=== PATIENT | male | born 1995 | race African-American/Black ===

== ENCOUNTER 2024-07-06 16:04 | Inpatient (IN) | payer SELFPAY ==
--- NOTE | ~2024-07-06 | US_ITS ---
EXAMINATION: US scrotum doppler DATE: 07/06/2024 17:15 INDICATION: Perineal abscess TECHNIQUE: Sonographic evaluation of the scrotum was performed assessing grayscale appearance and col or Doppler flow. Spectral Doppler evaluation was also performed. COMPARISON: None. FINDINGS: RIGHT TESTICLE: The right testicle measures 3.9 x 2.2 x 2.6 cm. Dopplerable flow is present. RIGHT EPIDIDYMIS: The right epididymis is unremarkable. LEFT TESTICLE: The left testicle measures 4.0 x 2.1 x 2.4 cm. Dopplerable flow is demonstrated. LEFT EPIDIDYMIS: The left epididymis is unremarkable. Within the area of clinical concern of the perineum is a complex fluid collection measuring 29 x 24 x 21 mm for which an abscess is suspected. IMPRESSION: Complex peritoneal fluid collection for which an abscess is suspected. Reviewed, dictated and finalized at location A. MANAGER
--- NOTE | ~2024-07-06 | CT_ITS ---
CLINICAL INDICATION: Perineal abscess. COMPARISON: Reference is made to ultrasound examination of the scrotum and perineum performed 2 hours earlier.. TECHNIQUE: Computed tomography (CT) of the pelvis was performed following the demonstration of intrav enous contrast. The dose-length product was 718.07 mGy-cm. FINDINGS/OBSERVATIONS: Redemonstration of a rim-enhancing fluid collection within the perineum measuring 53 x 16 x 26 mm (an terior to posterior x medial to lateral x cranial to caudal dimension). This is located within the ur ogenital triangle of the perineum. Remainder of the examination is otherwise unremarkable. IMPRESSION: Peroneal abscess, as detailed above. Reviewed, dictated and finalized at location A. ID YEAST SUPERVISOR
--- OUTSIDE RECORDS SUMMARY | 2024-07-06 16:06 | XMS_ITS | Clinical Summary ---
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 Gender Identity Not on file Sexual Orientation Not on file Plan of Treatment Health Maintenance Due Date Last Done Comments Hepatitis C Virus (HCV) Screening 1997 Human Papillomavirus (HPV) Immunization (1 - Male 3-dose series) 2012 Influenza Immunization (#1) 2024 08/29/2014, 0 09/29/2011 SARS-COV-2 Immunization ( season) 2024 Respiratory Syncytial Virus (RSV) Immunization (Adult) (1 - 1-dose 75+ series) 2072 Hepatitis B Immunization Completed 998, 1997, 1997 DTaP/Tdap/Td Immunization Discontinued 2008, 07/28/2001, 07/22/1999, Additional history exists TdaP Immunization Completed 07/31/2008 Meningococcal Immunization (ACWY) Completed 08/29/2014, 07/31/2008 Pneumococcal Immunization Combined Aged Out No longer eligible based on patient's age to complete this topic Rotavirus Immunization Aged Out No lo nger eligible based on patient's age to complete this topic
--- OUTSIDE RECORDS SUMMARY | 2024-07-06 16:06 | XMS_ITS | Clinical Summary ---
Author Organization [facility] Address [address] [place] [id number] Care Team Providers Care Commercial Construction Superintendent Name Role Phone No, Physician Primary Care Provider [phone] Allergies No known active allergies Social History Tobacco Use Types Packs/Day Years Used Date Smoking Tobacco: Never Assessed Personal Safety Answer Date Recorded Have you ever been in or are you currently in a harmful physical or emotional relationship or is someone making you feel afraid or unsafe? 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 Gender Identity Not on file Sexual Orientation Not on file Obstetrics History Last Filed Vital Signs Vital Sign Reading Time Taken Comments Blood Pressure 143/88 01/23/2024 12:07 AM CDT Pulse 92 01/23/2024 12:07 AM CDT Temperature 36.8 C (98.2 F) 01/23/2024 12:07 AM CDT Respiratory Rate 18 01/23/2024 12:07 AM CDT Oxygen Saturation 99% 01/23/2024 12:07 AM CDT Inhaled Oxygen Concentration - - Weight 117.9 kg (260 lb) 01/23/2024 12:07 AM CDT Height 188 cm (6' 2 ) 01/23/2024 12:07 AM CDT Body Mass Index 33.38 01/23/2024 12:07 AM CDT Plan of Treatment Not on file Insurance [place] [address] PLAN [facility] ASHAMARIBEL [id number] [facility] Care Teams Commercial Construction Superintendent Relationship Specialty Start Date End Date No, Physician PCP - General 07/01/19
--- OUTSIDE RECORDS SUMMARY | 2024-07-06 16:06 | XMS_ITS | Referral Summary ---
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
--- OUTSIDE RECORDS SUMMARY | 2024-07-06 16:06 | XMS_ITS | Clinical Summary ---
Author Organization [facility] Address [address] [place] [id number] Care Team Providers Care Traditional Maori Health Practitioner Name Role Phone Unavailable Primary Care Provider Unavailabl e Social History Tobacco Use Types Packs/Day Years Used Date Smoking Tobacco: Never Assessed Sex and Gender Information Value Date Recorded Sex Assigned at Not on file Legal Sex Male 8:02 PM CDT Gender Identity Not on file Sexual Orientation Not on file Plan of Treatment Health Maintenance Due Date Last Done Comments Annual Physical 2000 HPV Vaccines (1 - Male 3-dos e series) 2012 Hepatitis C 2015 DTaP, Tdap and Td Vaccines ( 1 - Tdap) 2016 Hepatitis B Vaccines (1 of 3 - 19+ 3-dose series) 2016 COVID-19 Vaccine ( - 2023-2 5 season) 2024 Influenza Adult (#1) 2024 Meningococcal B Vaccine Aged Out No l onger eligible based on patient's age to complete this topic Meningococcal Vaccine Aged Out No rosemarie benjamín eligible based on patient's age to complete this topic Pneumococcal Vaccine: Pediat rics (0 to 5 Years) and At-Risk Patients (6 to 64 Years) Aged Out No longer eligible b ased on patient's age to complete this topic RSV Immunizations Under 20 Months Aged Out No longer eligible based on patient's age to complete this topic
--- NOTE | 2024-07-06 16:38 | ED_ITS ---
HPI - Skin/Abscess/Foreign Bdy General Chief complaint: Skin/Abscess/Foreign Body <Meghann Carlton PA-C - Last Filed: 07/06/24 16:43> Stated complaint: taint cyst <EMMA Arzate Last Filed: 07/06/24 16:43> Time Seen by Provider: 07/06/24 16:38 <Meghann Carlton PA-C - Last Filed: 07/06/24 16:43> Focused HPI: Patient is a 28 y/o male who presents to the ED with c/o cyst on his scrotum. Patient reports he 1st noticed this a few days ago. Has had pain r/t the cyst, but denies significant testicular pain. Denies drainage. Denies fevers. Denies dysuria/difficulty having BM. No hx of DM. States he has had similar sx's in the past, but typically along his inner thighs. GENERAL: Well-appearing, well-nourished, and in no acute distress. HEAD: Normocephalic, atraumatic. CHEST: Clear to auscultation. ?No respiratory distress. HEART: Regular rate and rhythm.? NEURO: ?Alert and oriented x3. Patient screened in triage and initial orders placed.? ?Additional care and disposition to be based upon?diagnostic testing and treatment. <Meghann Carlton PA-C - Last Filed: 07/06/24 16:43> Source: patient <Meghann Carlton PA-C - Last Filed: 07/06/24 16:43> Mode of arrival: ambulatory <Meghann Carlton PA-C - Last Filed: 07/06/24 16:43> Limitations: no limitations <EMMA Arzate Last Filed: 07/06/24 16:43> History of Present Illness HPI narrative: agree with the HPI as described above. <Lonnie Mahaarj MD - Last Filed: 07/06/24 20:55> Related Data Allergies/Adverse reactions: Allergies Allergy/AdvReac Type Severity Reaction Status Date / Time No Known Allergies Allergy Verified 07/06/24 18:13 <PANFILO ArzateC - Last Filed: 07/06/24 16:43> Review of Systems 2 Review of Systems: As described above in HPI <Lonnie Maharaj MD - Last Filed: 07/06/24 20:55> PMFSH Past Medical History Medical History: Medical History No active medical problems <Meghann Carlton PA-C - Last Filed: 07/06/24 16:43> Social History Social History: Social History Substance use: never <Meghann Carlton PA-C - Last Filed: 07/06/24 16:43> Exam 2 Narrative: GENERAL: [Well-appearing, well-nourished, and in no acute distress.] HEAD: [Normocephalic, atraumatic.] EYES: [PERRLA and EOMI.] ENT: Nares clear, no rhinorrhea or epistaxis. Mucous membranes moist. NECK: Supple. CHEST: [Clear to auscultation. No respiratory distress.] HEART: [Regular rate and rhythm]. No murmur heard. [Normal peripheral pulses.] ABDOMEN: [Soft, nondistended], [nontender], [No rigidity or guarding] GENITOURINARY: there appears to be a large area of induration with fluctuance on palpation to the inferior portion of the left-sided scrotum in the perineal area, hard indurated skin without any overlying redness but there is some drainage of mild purulent Material but no bleeding. testes without any palpable tenderness or deformity, no penile erythema or signs of infection. EXTREMITIES: Normal range of motion. [No edema.] SKIN: Warm, dry, no rash. NEURO: [No focal deficits]. Alert and oriented [x3.] PSYCH: [Normal mood and affect.] <Lonnie Maharaj MD - Last Filed: 07/06/24 20:55> Course Vital Signs Vital signs: Vital Signs Temperature 36.7 C 07/06/24 16:39 Pulse Rate 118 H 07/06/24 16:39 Respiratory Rate 16 07/06/24 16:39 Blood Pressure 128/74 07/06/24 16:39 Pulse Oximetry 100 07/06/24 16:39 Oxygen Delivery Room Air 07/06/24 16:39 Temperature 37.1 C 07/06/24 18:14 Pulse Rate 86 07/06/24 18:14 Respiratory Rate 18 07/06/24 18:14 Blood Pressure 135/87 07/06/24 18:14 Pulse Oximetry 99 07/06/24 18:14 Oxygen Delivery Room Air 07/06/24 16:39 <Meghann Carlton PA-C - Last Filed: 07/06/24 16:43> Vital Signs Temperature 36.7 C 07/06/24 16:39 Pulse Rate 118 H 07/06/24 16:39 Respiratory Rate 16 07/06/24 16:39 Blood Pressure 128/74 07/06/24 16:39 Pulse Oximetry 100 07/06/24 16:39 Oxygen Delivery Room Air 07/06/24 16:39 Temperature 37.1 C 07/06/24 18:14 Pulse Rate 86 07/06/24 18:14 Respiratory Rate 18 07/06/24 18:14 Blood Pressure 135/87 07/06/24 18:14 Pulse Oximetry 99 07/06/24 18:14 Oxygen Delivery Room Air 07/06/24 16:39 <Lonnie Maharaj MD - Last Filed: 07/06/24 20:55> MDM - Skin/Abscess/Foreign Bdy MDM Narrative Medical decision making narrative: MSE by SULAIMAN in triage. <Meghann Carlton PA-C - Last Filed: 07/06/24 16:43> MSE by SULAIMAN in triage. 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 No formal diagnosis of any kind of inflammatory process such as HS however likely in his history of recurrent abscess formation. Presents today with a perineal/ scrotal abscess: Clinical examination. He is slightly tachycardic with a pulse 118 but afebrile, normal vital signs otherwise. Genital urinary examination conducted at bedside does show an hard induration area with some mild fluctuance and minimal purulent expression at the apex without any overlying skin erythema. Testicles without any tenderness or swelling, no penile lesions. No tender lymphadenopathy in the region. His previous incision and drainage sites in his leg and buttock appear clean and without active signs of infection or purulence. ultrasound of the scrotum was conducted which shows a perineal abscess. Laboratory studies were obtained including lactic acid, CBC, CMP. He was given morphine and fluid bolus. He was started on Zosyn for antibiosis. A CT of the pelvis with contrast was obtained to make sure there is no extension into the soft tissues or other process that needs attention. Laboratory studies showed no leukocytosis or anemia. Normal platelet count. Slightly hypokalemic otherwise unremarkable electrolytes, normal LFTs, negative lactic acid. the CT scan shows a 53 x 16 x 26 mm collection of rim enhancing fluid in the perineal area within the urogenital triangle. I discussed the case with the on-call urologist Dr. Santacruz. We went over the imaging together as well as clinical exam. Patient would benefit from an incision and drainage in the operating room given the size of the abscess formation. Recommendations to admit to the hospitalist team with NPO at midnight, pain control antibiotics. Will be undergoing incision and drainage in the operating room tomorrow morning. Discussed the case with the hospitalist Dr. Lester who agreed to accept the patient for admission to a medical-surgical bed at this time. Patient was made aware of the plan and agreeable to admission and intervention. <Lonnie Maharaj MD - Last Filed: 07/06/24 20:55> Medical Records Attestation: I reviewed the patient's medical records. <Lonnie Maharaj MD - Last Filed: 07/06/24 20:55> Lab Data Attestation: I reviewed the patient's lab results. <Lonnie Maharaj MD - Last Filed: 07/06/24 20:55> Result diagrams: 07/06/24 18:43 07/06/24 18:43 <Meghann Carlton PA-C - Last Filed: 07/06/24 16:43> Labs: Lab Results 07/06/24 Range/Units 18:43 WBC 9.8 (4.5-10.0) K/mm3 RBC 5.37 (4.6-6.20) M/mm3 Hgb 17.7 (14.0-18.0) g/dL Hct 48.6 (42.0-52.0) % MCV 90.5 (80-100) fl MCH 33.0 (26-34) pg MCHC 36.4 H (32-36) g/dl RDW 13.0 (11.5-14.5) % Plt Count 206 (150-375) k/mm3 MPV 10.8 H (7.4-10.4) fl Immature Gran % (Auto) 0.3 (0-0.5) % Neut % (Auto) 72.2 (45.5-73.1) % Lymph % (Auto) 19.7 (18.3-44.2) % [place] % (Auto) 7.3 (2.6-8.5) % Eos % (Auto) 0.3 (0-4.4) % Baso % (Auto) 0.2 (0.2-1.2) % Lymph # (Auto) 1.93 (0.9-3.2) K/mm3 [place] # (Auto) 0.7 H (0.1-0.6) K/mm3 Eos # (Auto) 0.0 (0-0.3) K/mm3 Baso # (Auto) 0.0 (0.0-0.1) K/mm3 Abs Immat Gran (auto) 0.03 (0.00-0.031) K/mm3 Absolute Neuts (auto) 7.1 H (1.3-6.7) K/mm3 Absolute Nucleated RBC 0.000 (0.0-0.012) K/mm3 Nucleated RBC % 0.0 (0.0-0.2) % Sodium 140 (137-145) mmol/L Potassium 3.2 L (3.4-5.0) mmol/L Chloride 105 (98-107) mmol/L Carbon Dioxide 23 (22-30) mmol/L Anion Gap 12 (4-12) mmol/L BUN 7 L (9-20) mg/dL Creatinine 0.70 (0.7-1.3) mg/dL Estim Creat Clear Calc 185 ml/min Estimated GFR > 60 (59 - ) Glucose 96 (65-110) mg/dL Lactic Acid 1.4 (0.7-2.0) mmol/L Calcium 9.1 (8.4-10.2) mg/dL Total Bilirubin 1.6 H (0.2-1.3) mg/dL AST 26 (17-59) U/L ALT 33 (6-50) U/L Alkaline Phosphatase 71 (38-126) U/L Total Protein 7.0 (6.3-8.2) g/dL Albumin 4.2 (3.5-5.1) g/dL <Meghann Carlton PA-C - Last Filed: 07/06/24 16:43> Lab Results 07/06/24 Range/Units 18:43 WBC 9.8 (4.5-10.0) K/mm3 RBC 5.37 (4.6-6.20) M/mm3 Hgb 17.7 (14.0-18.0) g/dL Hct 48.6 (42.0-52.0) % MCV 90.5 (80-100) fl MCH 33.0 (26-34) pg MCHC 36.4 H (32-36) g/dl RDW 13.0 (11.5-14.5) % Plt Count 206 (150-375) k/mm3 MPV 10.8 H (7.4-10.4) fl Immature Gran % (Auto) 0.3 (0-0.5) % Neut % (Auto) 72.2 (45.5-73.1) % Lymph % (Auto) 19.7 (18.3-44.2) % [place] % (Auto) 7.3 (2.6-8.5) % Eos % (Auto) 0.3 (0-4.4) % Baso % (Auto) 0.2 (0.2-1.2) % Lymph # (Auto) 1.93 (0.9-3.2) K/mm3 [place] # (Auto) 0.7 H (0.1-0.6) K/mm3 Eos # (Auto) 0.0 (0-0.3) K/mm3 Baso # (Auto) 0.0 (0.0-0.1) K/mm3 Abs Immat Gran (auto) 0.03 (0.00-0.031) K/mm3 Absolute Neuts (auto) 7.1 H (1.3-6.7) K/mm3 Absolute Nucleated RBC 0.000 (0.0-0.012) K/mm3 Nucleated RBC % 0.0 (0.0-0.2) % Sodium 140 (137-145) mmol/L Potassium 3.2 L (3.4-5.0) mmol/L Chloride 105 (98-107) mmol/L Carbon Dioxide 23 (22-30) mmol/L Anion Gap 12 (4-12) mmol/L BUN 7 L (9-20) mg/dL Creatinine 0.70 (0.7-1.3) mg/dL Estim Creat Clear Calc 185 ml/min Estimated GFR > 60 (59 - ) Glucose 96 (65-110) mg/dL Lactic Acid 1.4 (0.7-2.0) mmol/L Calcium 9.1 (8.4-10.2) mg/dL Total Bilirubin 1.6 H (0.2-1.3) mg/dL AST 26 (17-59) U/L ALT 33 (6-50) U/L Alkaline Phosphatase 71 (38-126) U/L Total Protein 7.0 (6.3-8.2) g/dL Albumin 4.2 (3.5-5.1) g/dL <Lonnie Maharaj MD - Last Filed: 07/06/24 20:55> Imaging Data Attestation: I personally reviewed and interpreted this imaging study as follows: < Lonnie Maharaj MD - Last Filed: 07/06/24 20:55> My impression: Impressions Scrotum Ultrasound 07/06/24 17:32 IMPRESSION: Complex peritoneal fluid collection for which an abscess is suspected. Pelvis CT 07/06/24 19:48 IMPRESSION: Peroneal abscess, as detailed above. <Lonnie Maharaj MD - Last Filed: 07/06/24 20:55> Discharge Plan Discharge Clinical Impression: Perineal abscess <Meghann Carlton PA-C - Last Filed: 07/06/24 16:43> Patient Disposition: Still a Patient <Meghann Carlton PA-C - Last Filed: 07/06/24 16:43> Condition: Stable <Meghann Carlton PA-C - Last Filed: 07/06/24 16:43> Patient Language: Bengali <Meghann Carlton PA-C - Last Filed: 07/06/24 16:43> Follow-up/Referrals: PHYSICIAN,VALVE TESTER [Primary Care Provider] - <Meghann Carlton PA-C - Last Filed: 07/06/24 16:43> Time of Disposition: 20:54 <Meghann Carlton PA-C - Last Filed: 07/06/24 16:43> 20:54 <Lonnie Maharaj MD - Last Filed: 07/06/24 20:55>
[2024-07-06 16:39] VITALS: BP 128/74; PULSE 118; RESP 16; TEMP 36.7; O2SAT 100
[2024-07-06 18:14] VITALS: BP 135/87; PULSE 86; RESP 18; TEMP 37.1; O2SAT 99
--- OUTSIDE RECORDS SUMMARY | 2024-07-06 18:20 | XMS_ITS | Referral Summary ---
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
--- OUTSIDE RECORDS SUMMARY | 2024-07-06 18:20 | XMS_ITS | Clinical Summary ---
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
--- OUTSIDE RECORDS SUMMARY | 2024-07-06 18:20 | XMS_ITS | Clinical Summary ---
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
--- OUTSIDE RECORDS SUMMARY | 2024-07-06 18:20 | XMS_ITS | Clinical Summary ---
Author Organization [facility] Address [address] [place] [id number] Care Team Providers Care Authorization Manager Name Role Phone Unavailable Primary Care Provider [...]
[2024-07-06] MEDS: LACTATED RINGERS 1,000 ML 999 ML IV CONT (18:39)
[2024-07-06] MEDS: MORPHINE SULFATE (*CRX) 4 MG/ML INJ IV PUSH (18:41)
[2024-07-06 18:48] LABS: Basophils Percent Auto 0.2 % (0.2-1.2); Eosinophils Percent Auto 0.3 % (0-4.4); Hematocrit 48.6 % (42.0-52.0); Hemoglobin 17.7 g/dL (14.0-18.0); Immature Granulocyte Absolute 0.03 K/mm3 (0.00-0.031); Immature Granulocyte Percent A 0.3 % (0-0.5); Lymphocytes Absolute Auto 1.93 K/mm3 (0.9-3.2); Lymphocytes Percent Auto 19.7 % (18.3-44.2); Mean Corpuscular HGB Conc 36.4 g/dl (32-36); Mean Corpuscular Volume 90.5 fl (80-100); Mean Platelet Volume 10.8 fl (7.4-10.4); Monocytes Absolute Auto 0.7 K/mm3 (0.1-0.6); Monocytes Percent Auto 7.3 % (2.6-8.5); Neutrophils Absolute Auto 7.1 K/mm3 (1.3-6.7); Neutrophils Percent Auto 72.2 % (45.5-73.1); Platelet Count Result 206 k/mm3 (150-375); Red Blood Count 5.37 M/mm3 (4.6-6.20); White Blood Count 9.8 K/mm3 (4.5-10.0)
[2024-07-06] MEDS: PIPERACILLIN/TAZ 4.5G/NS 100ML 4.5 GM/100 ML BAG IVPB (18:52)
[2024-07-06 18:57] LABS: Lactic Acid Reflex 1.4 mmol/L (0.7-2.0)
[2024-07-06 18:58] LABS: Alanine Aminotransferase 33 U/L (6-50); Albumin Level 4.2 g/dL (3.5-5.1); Alkaline Phosphatase 71 U/L (38-126); Anion Gap 12 mmol/L (4-12); Aspartate Amino Transferase 26 U/L (17-59); Bilirubin,Total 1.6 mg/dL (0.2-1.3); Blood Urea Nitrogen 7 mg/dL (9-20); Calcium 9.1 mg/dL (8.4-10.2); Carbon Dioxide 23 mmol/L (22-30); Chloride 105 mmol/L (98-107); Estimated CRCL calculation 185 ml/min; Estimated Glomerular Filt Rate > 60; Glucose 96 mg/dL (65-110); Potassium 3.2 mmol/L (3.4-5.0); Sodium 140 mmol/L (137-145)
[2024-07-06 23:19] VITALS: BMI 31.5
[2024-07-06 23:42] VITALS: BMI 33.2
--- NOTE | 2024-07-06 23:43 | ADMGEN ---
This patient, Bob Kuhn, was admitted to [facility] Surg Room 323-02. Patient/family oriented to hospital policies and general routines including ID bracelet, bed and alarms, visiting hours, pain management, procedures, bathroom and other care routines, personal items, smoking policy, room service/diet, and visiting hours. Information on how to activate the Rapid Response Team has been discussed. Patient/Family are encouraged to report perceived risks to care and to ask questions if they do not understand what they are told or what they should do.
[2024-07-06 23:59] VITALS: PULSE 86; RESP 18; O2SAT 99
[2024-07-07] VITALS (17 sets, daily range): BP systolic 94–146; BP diastolic 60–86; PULSE 52–85; RESP 10–20; TEMP 36–36.9; O2SAT 97–100
--- NOTE | 2024-07-07 01:50 | PM.IMHP ---
H&P: HPI History of Present Illness Date/Time: 07/07/24 01:50 Chief Complaint: Scrotal abscess Narrative: 28-year-old male with no prior medical history except for intermittent and spontaneous skin lesion/cyst on his thighs and gentle area. He presents to [place] ER with a complaint of pain since the day prior to admission which has become increasingly painful and large. Patient denies any drainage. He denies any trouble urinating. Recently at [facility] he had a similar abscess drained. ER physician noted minimal purulent drainage. Ultrasound of scrotum and pelvis CT both demonstrate a perennial abscess measuring 53 x 16 x 26 mm. ER physician spoke with Dr. Santacruz who anticipates incision and drainage in the OR on 07/07/2024. Zosyn administered. Review of Systems Review of Systems: All systems reviewed & are unremarkable except as noted in HPI and below (Subjective) PMFSH Past Medical History Medical History No active medical problems Social History Social History Years smoked: 11 Smoking status: Current every day smoker Tobacco type: cigars Alcohol intake: current Drinks per week: 4 Substance use: never Do You Feel Safe in your Home?: Yes Lack of Transportation: No Lack of Food: Never True Current Housing: I Have Housing Concerned About Future Housing: No Difficulty Paying Gas/Electric Bills: No Difficulty Paying for Meds: No Currently Unemployed: YES Education: High School Diploma/GED Difficulty w/ Childcare or Family Care: No Spiritual care concerns: No Meds Home Medications and Allergies Home Medications ?Medication ?Instructions ?Recorded ?Confirmed ?Type No Home Medications 07/06/24 07/06/24 History Allergies Allergy/AdvReac Type Severity Reaction Status Date / Time No Known Allergies Allergy Verified 07/06/24 18:13 Vital Signs Vital Signs - 24 hr 07/06/24 16:39 07/06/24 18:14 07/06/24 23:59 Temperature 98.1 F 98.8 F Pulse Rate 118 H 86 86 Respiratory Rate 16 18 18 Blood Pressure 128/74 135/87 Pulse Oximetry 100 99 99 Oxygen Delivery Room Air Room Air 07/07/24 00:45 Temperature 97.6 F Pulse Rate 85 Respiratory Rate 20 Blood Pressure 146/61 H Pulse Oximetry 100 Oxygen Delivery Exam Const: General: comfortable and no acute distress Eyes: Pupils: Equal, round and reactive pupils present Neck: Neck: supple Resp: Effort & Inspection: normal respiratory effort Auscultation: clear to auscultation bilaterally Cardio: Rate: regular rate Rhythm: regular rhythm GI: GI Palp: Yes Soft to palpation and No Tenderness to palpation present (GI) : Other: Perineal induration, fluctuance, erythematous and edematous. Self expressing purulent drainage. Exquisitely tender palpation H&P: Results Labs Labs: Short CBC 07/06/24 Range/Units 18:43 WBC 9.8 (4.5-10.0) K/mm3 Hgb 17.7 (14.0-18.0) g/dL Hct 48.6 (42.0-52.0) % Plt Count 206 (150-375) k/mm3 BMP 07/06/24 18:43 Sodium 140 Potassium 3.2 L Chloride 105 Carbon Dioxide 23 BUN 7 L Creatinine 0.70 Glucose 96 Calcium 9.1 Liver Function 07/06/24 Range/Units 18:43 Total Bilirubin 1.6 H (0.2-1.3) mg/dL AST 26 (17-59) U/L ALT 33 (6-50) U/L Alkaline Phosphatase 71 (38-126) U/L Albumin 4.2 (3.5-5.1) g/dL Assessment and Plan Assessment and plan (1) Perineal abscess: Code(s): L02.215 - Cutaneous abscess of perineum Status: Acute Plan P.r.n. pain control. Continue Zosyn. NPO midnight. Urology to see in consultation. Currently there is some self expression of purulent drainage. Culture ordered. Hypokalemia. Replace. Check magnesium. SCDs. Patient wishes to be full code. Hospitalist [facility] Advance Care Plan I have confirmed that the patient's Advanced Care Plan is present, code status is documented, or surrogate decision maker is listed in patient medical record.: Yes Medication Reconciliation I have utilized all available resources to obtain, update and review the patients current medications (includes all prescriptions, OTC, herbals, cannabis, and nutritional supplements).: Yes
[2024-07-07] MEDS: POTASSIUM CHLORIDE 20 MEQ ER TABLET PO (02:10)
[2024-07-07] MEDS: PIPERACILLN/TAZ 3.375GM/NS50ML 3.375 GM/50 ML BAG IVPB ×4 (02:19→19:50)
--- NOTE | 2024-07-07 07:19 | WPDANESEPPF ---
Anes - Initial Pre Proc Eval Procedure: Operation Date: 07/07/24 10:30 Proposed Procedures p Incision And Drainage Groin Abscess - Neal Perry MD Date/Time: 07/07/24 07:19 Surgeon: [place] Pre Op Diagnosis: Perineal/scrotal abscess Patient Data Age: 28 Gender: M Height: 1.83 m Weight: 111 kg Last Vital Signs Temp 36.4 C 07/07/24 00:45 Pulse 85 07/07/24 00:45 Resp 20 07/07/24 00:45 BP 146/61 H 07/07/24 00:45 Pulse Ox 100 07/07/24 00:45 O2 Del Method Room Air 07/06/24 23:59 Allergies Allergy/AdvReac Type Severity Reaction Status Date / Time No Known Allergies Allergy Verified 07/06/24 18:13 Home Medications ?Medication ?Instructions ?Recorded ?Confirmed ?Type No Home Medications 07/06/24 07/06/24 History Laboratory Tests 07/06/24 18:43 WBC 9.8 K/mm3 (4.5-10.0) RBC 5.37 M/mm3 (4.6-6.20) Hgb 17.7 g/dL (14.0-18.0) Hct 48.6 % (42.0-52.0) MCV 90.5 fl (80-100) MCH 33.0 pg (26-34) MCHC 36.4 H g/dl (32-36) RDW 13.0 % (11.5-14.5) Plt Count 206 k/mm3 (150-375) MPV 10.8 H fl (7.4-10.4) Immature Gran % (Auto) 0.3 % (0-0.5) Neut % (Auto) 72.2 % (45.5-73.1) Lymph % (Auto) 19.7 % (18.3-44.2) [place] % (Auto) 7.3 % (2.6-8.5) Eos % (Auto) 0.3 % (0-4.4) Baso % (Auto) 0.2 % (0.2-1.2) Lymph # (Auto) 1.93 K/mm3 (0.9-3.2) [place] # (Auto) 0.7 H K/mm3 (0.1-0.6) Eos # (Auto) 0.0 K/mm3 (0-0.3) Baso # (Auto) 0.0 K/mm3 (0.0-0.1) Abs Immat Gran (auto) 0.03 K/mm3 (0.00-0.031) Absolute Neuts (auto) 7.1 H K/mm3 (1.3-6.7) Absolute Nucleated RBC 0.000 K/mm3 (0.0-0.012) Nucleated RBC % 0.0 % (0.0-0.2) Sodium 140 mmol/L (137-145) Potassium 3.2 L mmol/L (3.4-5.0) Chloride 105 mmol/L (98-107) Carbon Dioxide 23 mmol/L (22-30) Anion Gap 12 mmol/L (4-12) BUN 7 L mg/dL (9-20) Creatinine 0.70 mg/dL (0.7-1.3) Estim Creat Clear Calc 185 ml/min Estimated GFR > 60 (59 - ) Glucose 96 mg/dL (65-110) Lactic Acid 1.4 mmol/L (0.7-2.0) Calcium 9.1 mg/dL (8.4-10.2) Total Bilirubin 1.6 H mg/dL (0.2-1.3) AST 26 U/L (17-59) ALT 33 U/L (6-50) Alkaline Phosphatase 71 U/L (38-126) Total Protein 7.0 g/dL (6.3-8.2) Albumin 4.2 g/dL (3.5-5.1) Patient hx anesthesia problems: none Family hx anesthesia problems: none Results Review: All pre-operative results and documents have been reviewed as part of the pre-operative evaluation. [facility] Past Medical History Medical History No active medical problems Social History Social History Years smoked: 11 Smoking status: Current every day smoker Tobacco type: cigars Alcohol intake: current Drinks per week: 4 Substance use: never Do You Feel Safe in your Home?: Yes Lack of Transportation: No Lack of Food: Never True Current Housing: I Have Housing Concerned About Future Housing: No Difficulty Paying Gas/Electric Bills: No Difficulty Paying for Meds: No Currently Unemployed: YES Education: High School Diploma/GED Difficulty w/ Childcare or Family Care: No Spiritual care concerns: No Anes - Eval Final PreProcedure Day of Procedure 07/07/24 07:19 Patient weight: obese Heart: regular rate and rhythm Lungs: clear to auscultation Airway: Mallampati scale class II Neurological: alert and oriented Last oral intake: >/= 8 hours ASA classification: II Emergent: no Anesthetic plan: proceed Anesthesia type and monitoring: general LMA and standard monitoring Results Review: All pre-operative results and documents have been reviewed as part of the pre-operative evaluation. Informed Consent: The patient's anesthetic plan and its attendant risks and benefits were discussed with the patient/family/POA. Questions were solicited and answers provided to the satisfaction of the patient/family/POA.
[2024-07-07 07:46] LABS: Basophils Percent Auto 0.4 % (0.2-1.2); Eosinophils Absolute Auto 0.1 K/mm3 (0-0.3); Eosinophils Percent Auto 1.2 % (0-4.4); Hematocrit 44.4 % (42.0-52.0); Hemoglobin 15.8 g/dL (14.0-18.0); Immature Granulocyte Absolute 0.03 K/mm3 (0.00-0.031); Immature Granulocyte Percent A 0.4 % (0-0.5); Lymphocytes Percent Auto 23.4 % (18.3-44.2); Mean Corpuscular HGB Conc 35.6 g/dl (32-36); Mean Corpuscular Hemoglobin 32.5 pg (26-34); Mean Corpuscular Volume 91.4 fl (80-100); Mean Platelet Volume 11.3 fl (7.4-10.4); Monocytes Absolute Auto 0.8 K/mm3 (0.1-0.6); Monocytes Percent Auto 8.8 % (2.6-8.5); Neutrophils Absolute Auto 5.7 K/mm3 (1.3-6.7); Neutrophils Percent Auto 65.8 % (45.5-73.1); Platelet Count Result 195 k/mm3 (150-375); Red Blood Count 4.86 M/mm3 (4.6-6.20); Red Cell Distribution Width 12.7 % (11.5-14.5); White Blood Count 8.6 K/mm3 (4.5-10.0)
[2024-07-07 08:09] LABS: Anion Gap 8 mmol/L (4-12); Blood Urea Nitrogen 8 mg/dL (9-20); Calcium 8.6 mg/dL (8.4-10.2); Carbon Dioxide 25 mmol/L (22-30); Chloride 106 mmol/L (98-107); Estimated CRCL calculation 159 ml/min; Estimated Glomerular Filt Rate > 60; Glucose 81 mg/dL (65-110); Magnesium 2.2 mg/dL (1.6-2.3); Potassium 3.5 mmol/L (3.4-5.0); Sodium 139 mmol/L (137-145)
--- NOTE | 2024-07-07 08:15 | WPDURCON ---
Assessment and Plan Assessment and plan (1) Scrotal abscess: Code(s): N49.2 - Inflammatory disorders of scrotum Status: Acute Assessment and Plan: Plan for incision and drainage of a general abscess. Discussed the fact that I will not close the wound. He it we packed open and need frequent dressing changes. I do not think he would tolerate this without anesthesia. Discussed risks and benefits. He agrees to proceed Urology Consult Note HPI Date Seen: 07/07/24 Requesting Physician: Vivian Lester MD Primary Care Provider: [employer]MENT TENDER PHYSICIAN Consult Narrative Narrative: Bob Kuhn is a 28 year old male who noted groin pain and swelling over the last 4-5 days. He denied fevers or chills. He denied symptoms of urinary tract infection. He has history of a recent thigh abscess which drained spontaneous. He presented himself to the emergency room. He underwent a ultrasound and CT scan. A groin abscess is noted on the left measuring up to 5 cm. It is exquisitely tender. I do not think he would tolerate incision and drainage in the room. We will plan on I and D under anesthesia Review of Systems Review of Systems: All systems reviewed & are unremarkable except as noted in HPI and below PMFSH Past Medical History Medical History No active medical problems Social History Social History Years smoked: 11 Smoking status: Current every day smoker Tobacco type: cigars Alcohol intake: current Drinks per week: 4 Substance use: never Do You Feel Safe in your Home?: Yes Lack of Transportation: No Lack of Food: Never True Current Housing: I Have Housing Concerned About Future Housing: No Difficulty Paying Gas/Electric Bills: No Difficulty Paying for Meds: No Currently Unemployed: YES Education: High School Diploma/GED Difficulty w/ Childcare or Family Care: No Spiritual care concerns: No Meds Home Medications and Allergies Home Medications ?Medication ?Instructions ?Recorded ?Confirmed ?Type No Home Medications 07/06/24 07/06/24 History Allergies Allergy/AdvReac Type Severity Reaction Status Date / Time No Known Allergies Allergy Verified 07/06/24 18:13 Vital Signs Vital Signs - 24 hr 07/06/24 16:39 07/06/24 18:14 07/06/24 23:59 Temperature 98.1 F 98.8 F Pulse Rate 118 H 86 86 Respiratory Rate 16 18 18 Blood Pressure 128/74 135/87 Pulse Oximetry 100 99 99 Oxygen Delivery Room Air Room Air 07/07/24 00:44 07/07/24 00:45 07/07/24 07:19 Temperature 97.6 F 97.6 F 98.4 F Pulse Rate 85 85 73 Respiratory Rate 20 20 20 Blood Pressure 146/61 H 146/61 H 126/82 Pulse Oximetry 100 100 100 Oxygen Delivery Exam Const: General: cooperative and healthy appearing; No diaphoretic or ill appearing Nutritional Appearance: average body habitus Limitations: no limitations HENMT: Head: normal to inspection Eyes: General: appearance normal, both eyes and all related structures Neck: Neck: normal visual inspection and full ROM Resp: Effort & Inspection: normal respiratory effort, able to speak in complete sentences and not labored GI: Inspection: normal to inspection : Other: Normal phallus. Area of abscess on the inferior left scrotum. This not tolerate exam very well. Scant drainage minimal overlying skin erythema. No overt signs of necrosis Back/Spine/Pelvis: Back: no CVA tenderness Skin: General skin exam: normal color and no rashes or lesions noted Neuro: General: patient oriented x3 Extrem: General: normal to inspection and full ROM Psych: Appearance: grossly normal Results Labs 07/07/24 07:03 07/07/24 07:03 Labs: Short CBC 07/06/24 07/07/24 Range/Units 18:43 07:03 WBC 9.8 8.6 (4.5-10.0) K/mm3 Hgb 17.7 15.8 (14.0-18.0) g/dL Hct 48.6 44.4 (42.0-52.0) % Plt Count 206 195 (150-375) k/mm3 BMP 07/06/24 07/07/24 18:43 07:03 Sodium 140 139 Potassium 3.2 L 3.5 Chloride 105 106 Carbon Dioxide 23 25 BUN 7 L 8 L Creatinine 0.70 0.79 Glucose 96 81 Calcium 9.1 8.6 Liver Function 07/06/24 Range/Units 18:43 Total Bilirubin 1.6 H (0.2-1.3) mg/dL AST 26 (17-59) U/L ALT 33 (6-50) U/L Alkaline Phosphatase 71 (38-126) U/L Albumin 4.2 (3.5-5.1) g/dL Imaging My impression: I reviewed his CT scan myself. I have also reviewed the ultrasound report
[2024-07-07] MEDS: LACTATED RINGERS 1,000 ML 30 ML IV CONT (09:55)
--- NOTE | 2024-07-07 10:40 | WPDHPUPDATE1 ---
History and Physical Update Update Date/Time: 07/07/24 10:40 History and Physical has been reviewed, including an updated exam of the patient. There are NO changes in the patient's condition. Risks, benefits, and alternatives have been discussed and questions answered. Patient agrees to proceed with procedure.
[2024-07-07] MEDS: BUPIVACAINE/EPINEPHRINE 0.5% 10 ML VIAL INFILTRATE (11:03)
--- NOTE | 2024-07-07 11:07 | W.PM.PROC2 ---
Procedure Note - Detailed Date of Procedure 07/07/24 Pre-op Diagnosis Perineal/scrotal abscess Post-op Diagnosis Same Procedure Performed incision and drainage of scrotal abscess/ groin abscess Surgeon Neal Perry MD Anesthesia General Indications he has a scrotal and groin abscess. He would not tolerate a bedside incision and drainage we will do under anesthesia and packed the wound. he understood risks, benefits and alternatives. He understands that will need to heal by secondary intention Findings uncomplicated groin abscess drainage Description of Procedure he was correctly identified. Informed consent obtained. From the operating room. He was he was given general anesthesia. He was prepped and draped in the frogleg position. A time-out performed. Examination revealed a scrotal and groin abscess in the left inferior groin scrotal region. It was away from the urethra. Was away from the anus. It was away from the testicles. I localized the area with local mixed with epinephrine. I made incision over this abscess. Copious purulent material was drained. This was sent for culture. I opened the entire scrotal abscess up to aid in wound packing. I irrigated out the wound copiously. I packed it with iodoform gauze. There was no evidence of injury to the urethra, testicles, surrounding organs. Sterile dressing was applied. I will get a wound care consult to help manage the wound. He likely be able to care for this on his own upon discharge. He was awakened transferred to the PACU in stable condition. Estimated Blood Loss 2 Drains No Packing Yes Pathology None sent Complications No immediate complications Condition Stable Disposition PACU
[2024-07-07] MEDS: fentaNYL CITRATE INJ (*CRX) 100 MCG/2 ML VIAL 25 MCG IV PUSH ×2 (11:32→11:35)
--- NOTE | 2024-07-07 16:06 | P.PNIM_ITS ---
Progress Note: A&P Assessment and Plan (1) Perineal abscess: Code(s): L02.215 - Cutaneous abscess of perineum Status: Acute Assessment and Plan: * scrotum ultrasound shown complex peritoneal fluid collection measuring 29 x 24 x 21 mm, suspicious for an abscess * pelvis CT shown perineal abscess measuring 53 x 16 x 26 mm * general surgery consulted and took patient for I&D today * continue pain control * continue Zosyn * SCDs for DVT prophylaxis * wound nurse consulted and placed recommendations * blood culture showing no growth to date on preliminary read * Will likely need help at home with dressing changes Time Spent With Patient Time with patient: 25 - 35 minutes Subjective Date/time seen: 07/07/24 16:06 Interval history: Interval history: This is a 28 year old male who presented to the hospital with scrotal abscess. workup in the hospital included a scrotum ultrasound which showed complex peritoneal fluid collection for which an abscess is suspected, measuring 29 x 24 x [address] Pelvic CT showed peroneal abscess measuring 53 x 16 x 26 mm. Initial labs showed a normal white blood cell count of 9.8, potassium 3.2, total bili 1.6. Abscess culture pending. Patient was given LR, Zosyn, pain medication, potassium while in the ED. General surgery was consulted and took patient today for and I and D of the scrotal /groin abscess. Subjective: Denies any new complaints. He states that his pain is controlled right now. Labs reviewed. Review of Systems Review of Systems: All systems reviewed & are unremarkable except as noted in HPI and below (Subjective) Exam Narrative: General: In no acute distress, well nourished Head: atraumatic, no encephalopathy Eyes: PERRLA, sclera clear ENT: moist mucous membranes, nasal passages clear Neck: supple, no JVD, no adenopathy, trachea midline Cardiac: Normal S1 and S2. RRR, No murmur, gallops or friction rubs, peripheral pulses intact. Respiratory: Lungs clear to auscultation, no adventitious lung sounds, currently on room air Gastrointestinal: soft, non-distended, non-tender, normoactive bowel sounds. : voiding without difficulty. Extremities: moves all extremities well, no edema, good ROM, strength 5/5 Skin: perineal OR dressing in place with Iodoform gauze packing. Neuro: Alert and oriented x4, cranial nerves intact, no neuro deficits. Psych: normal mood, normal affect, interactive Objective Data Vital Signs Vital Signs: Vital Signs - 24 hr 07/06/24 16:39 07/06/24 18:14 07/06/24 23:59 Temperature 98.1 F 98.8 F Pulse Rate 118 H 86 86 Respiratory Rate 16 18 18 Blood Pressure 128/74 135/87 Pulse Oximetry 100 99 99 Oxygen Delivery Room Air Room Air Oxygen Flow Rate 07/07/24 00:44 07/07/24 00:45 07/07/24 07:19 Temperature 97.6 F 97.6 F 98.4 F Pulse Rate 85 85 73 Respiratory Rate 20 20 20 Blood Pressure 146/61 H 146/61 H 126/82 Pulse Oximetry 100 100 100 Oxygen Delivery Oxygen Flow Rate 07/07/24 08:38 07/07/24 09:56 07/07/24 11:08 Temperature 98.5 F 97.2 F L Pulse Rate 60 75 Respiratory Rate 16 14 Blood Pressure 134/73 108/60 Pulse Oximetry 100 100 100 Oxygen Delivery Room Air Room Air Simple Face Mask Oxygen Flow Rate 8 07/07/24 11:20 07/07/24 11:35 07/07/24 11:45 Temperature Pulse Rate 67 52 L Respiratory Rate 13 16 Blood Pressure 128/86 125/86 Pulse Oximetry 100 100 Oxygen Delivery Simple Face Mask Simple Face Mask Room Air Oxygen Flow Rate 8 8 07/07/24 11:50 07/07/24 12:05 07/07/24 12:20 Temperature 98 F Pulse Rate 56 L 55 L 60 Respiratory Rate 12 12 10 L Blood Pressure 118/75 114/75 115/86 Pulse Oximetry 99 98 98 Oxygen Delivery Room Air Room Air Room Air Oxygen Flow Rate 07/07/24 12:45 07/07/24 13:00 07/07/24 13:30 Temperature 97.5 F L 97.5 F L 97.5 F L Pulse Rate 56 L 84 56 L Respiratory Rate 18 16 16 Blood Pressure 123/80 123/84 94/61 L Pulse Oximetry 100 97 100 Oxygen Delivery Oxygen Flow Rate 07/07/24 14:30 Temperature 97.7 F Pulse Rate 67 Respiratory Rate 12 Blood Pressure 119/69 Pulse Oximetry 100 Oxygen Delivery Oxygen Flow Rate Intake/Output Intake/Output: Intake & Output 07/04/24 07/05/24 07/06/2407/25 23:59 23:59 23:59 23:59 Intake Total 1100 200 Balance 1100 200 Meds/Results Medications: Active Medications Generic Name Dose Route Start Last Admin Trade Name Freq PRN Reason Stop Dose Admin Acetaminophen 650 mg 07/06/24 20:48 Acetaminophen 325 Mg Tablet PO Q4H PRN Mild Pain (1-3) or Fever Hydrocodone Bitart/Acetaminophen 1 tab 07/07/24 12:22 Hydrocodone/Acetaminophen (*Crx) 5-325 Mg Tablet PO Q4H PRN Pain Rated 4-6 Piperacillin/Tazobactam/Dextrose 3.375 gm in 50 mls @ 100 mls/hr 07/07/24 02:00 07/07/24 15:15 Zosyn 3.375 Gm/Ns 50 Ml IVPB 100 mls/hr Q6H BORIS Administration Morphine Sulfate 4 mg 07/06/24 20:48 Morphine Sulfate (*Crx) 4 Mg/Ml Inj IV PUSH Q2H PRN Pain Rated 7-10 Ondansetron HCl 4 mg 07/06/24 20:48 Ondansetron Inj 4 Mg/2 Ml Vial IV PUSH Q4H PRN Nausea Ondansetron HCl 4 mg 07/07/24 07:19 Ondansetron Inj 4 Mg/2 Ml Vial IV PUSH ONCE PRN Nausea Radiology Results: ITS Impressions Scrotum Ultrasound 07/06/24 17:32 IMPRESSION: Complex peritoneal fluid collection for which an abscess is suspected. Pelvis CT 07/06/24 19:48 IMPRESSION: Peroneal abscess, as detailed above. Labs Labs: Laboratory Results - last 24 hr 07/06/24 07/07/24 18:43 07:03 WBC 9.8 8.6 RBC 5.37 4.86 Hgb 17.7 15.8 Hct 48.6 44.4 MCV 90.5 91.4 MCH 33.0 32.5 MCHC 36.4 H 35.6 RDW 13.0 12.7 Plt Count 206 195 MPV 10.8 H 11.3 H Immature Gran % (Auto) 0.3 0.4 Neut % (Auto) 72.2 65.8 Lymph % (Auto) 19.7 23.4 [place] % (Auto) 7.3 8.8 H Eos % (Auto) 0.3 1.2 Baso % (Auto) 0.2 0.4 Lymph # (Auto) 1.93 2.00 [place] # (Auto) 0.7 H 0.8 H Eos # (Auto) 0.0 0.1 Baso # (Auto) 0.0 0.0 Abs Immat Gran (auto) 0.03 0.03 Absolute Neuts (auto) 7.1 H 5.7 Absolute Nucleated RBC 0.000 0.000 Nucleated RBC % 0.0 0.0 Sodium 140 139 Potassium 3.2 L 3.5 Chloride 105 106 Carbon Dioxide 23 25 Anion Gap 12 8 BUN 7 L 8 L Creatinine 0.70 0.79 Estim Creat Clear Calc 185 159 Estimated GFR > 60 > 60 Glucose 96 81 Lactic Acid 1.4 Calcium 9.1 8.6 Magnesium 2.2 Total Bilirubin 1.6 H AST 26 ALT 33 Alkaline Phosphatase 71 Total Protein 7.0 Albumin 4.2
[2024-07-07] MEDS: MORPHINE SULFATE (*CRX) 4 MG/ML INJ IV PUSH (18:17)
[2024-07-08] VITALS: BP 128/69; PULSE 70; RESP 18; TEMP 36.1; O2SAT 98
[2024-07-08] MEDS: PIPERACILLN/TAZ 3.375GM/NS50ML 3.375 GM/50 ML BAG IVPB ×4 (02:27→20:17)
[2024-07-08] MEDS: HYDROcodone/acetaminophen (*CRX) 5-325 MG TABLET 1 TAB PO ×2 (02:30→09:21)
[2024-07-08 04:00] VITALS: BP 128/59; PULSE 64; RESP 18; TEMP 36.2; O2SAT 99
[2024-07-08 06:48] LABS: Basophils Percent Auto 0.1 % (0.2-1.2); Hematocrit 45.7 % (42.0-52.0); Hemoglobin 16.1 g/dL (14.0-18.0); Immature Granulocyte Absolute 0.09 K/mm3 (0.00-0.031); Immature Granulocyte Percent A 0.7 % (0-0.5); Lymphocytes Absolute Auto 1.48 K/mm3 (0.9-3.2); Lymphocytes Percent Auto 10.9 % (18.3-44.2); Mean Corpuscular HGB Conc 35.2 g/dl (32-36); Mean Corpuscular Hemoglobin 32.3 pg (26-34); Mean Corpuscular Volume 91.6 fl (80-100); Mean Platelet Volume 11.2 fl (7.4-10.4); Monocytes Absolute Auto 1.1 K/mm3 (0.1-0.6); Monocytes Percent Auto 8.4 % (2.6-8.5); Neutrophils Absolute Auto 10.8 K/mm3 (1.3-6.7); Neutrophils Percent Auto 79.9 % (45.5-73.1); Platelet Count Result 226 k/mm3 (150-375); Red Blood Count 4.99 M/mm3 (4.6-6.20); Red Cell Distribution Width 12.6 % (11.5-14.5); White Blood Count 13.5 K/mm3 (4.5-10.0)
--- NOTE | 2024-07-08 07:30 | P.PNAN_ITS ---
Anes - Prog Note Post-Op Date/Time: 07/08/24 07:30 Cardiovascular status: normal Respiratory status: normal Airway patency: baseline Mental status: baseline Post-Op hydration status: normal Vital Signs: Last Vital Signs Temp 36.2 C L 07/08/24 04:00 Pulse 64 07/08/24 04:00 Resp 18 07/08/24 04:00 BP 128/59 L 07/08/24 04:00 Pulse Ox 99 07/08/24 04:00 O2 Del Method Room Air 07/07/24 12:20 O2 Flow Rate 8 07/07/24 11:35 Pain Score (VAS): 3 I/O: Intake & Output 07/07/24 07/07/24 07/08/24 15:59 23:59 07:59 Intake Total 496 375 9359 Balance 058 871 [id number] Laboratory Tests 07/08/24 06:32 07/07/24 07/08/24 07:03 06:32 WBC 8.6 13.5 H RBC 4.86 4.99 Hgb 15.8 16.1 Hct 44.4 45.7 MCV 91.4 91.6 MCH 32.5 32.3 MCHC 35.6 35.2 RDW 12.7 12.6 Plt Count 195 226 MPV 11.3 H 11.2 H Immature Gran % (Auto) 0.4 0.7 H Neut % (Auto) 65.8 79.9 H Lymph % (Auto) 23.4 10.9 L [place] % (Auto) 8.8 H 8.4 Eos % (Auto) 1.2 0.0 Baso % (Auto) 0.4 0.1 L Lymph # (Auto) 2.00 1.48 [place] # (Auto) 0.8 H 1.1 H Eos # (Auto) 0.1 0.0 Baso # (Auto) 0.0 0.0 Abs Immat Gran (auto) 0.03 0.09 H Absolute Neuts (auto) 5.7 10.8 H Absolute Nucleated RBC 0.000 0.000 Nucleated RBC % 0.0 0.0 Sodium 139 Pending Potassium 3.5 Pending Chloride 106 Pending Carbon Dioxide 25 Pending Anion Gap 8 Pending BUN 8 L Pending Creatinine 0.79 Pending Estim Creat Clear Calc 159 Pending Estimated GFR > 60 Pending Glucose 81 Pending Calcium 8.6 Pending Magnesium 2.2 Total Bilirubin Pending AST Pending ALT Pending Alkaline Phosphatase Pending Total Protein Pending Albumin Pending Post-procedural complaints: none Patient Feedback: Patient satisfied with anesthetic care.
[2024-07-08 08:00] VITALS: BP 123/58; PULSE 56; RESP 18; TEMP 36.4; O2SAT 100
[2024-07-08 09:40] LABS: Alanine Aminotransferase 20 U/L (6-50); Albumin Level 3.1 g/dL (3.5-5.1); Alkaline Phosphatase 56 U/L (38-126); Anion Gap 6 mmol/L (4-12); Aspartate Amino Transferase 15 U/L (17-59); Bilirubin,Total 0.6 mg/dL (0.2-1.3); Blood Urea Nitrogen 8 mg/dL (9-20); Calcium 8.9 mg/dL (8.4-10.2); Carbon Dioxide 29 mmol/L (22-30); Chloride 105 mmol/L (98-107); Estimated CRCL calculation 145 ml/min; Estimated Glomerular Filt Rate > 60; Glucose 122 mg/dL (65-110); Potassium 4.7 mmol/L (3.4-5.0); Sodium 140 mmol/L (137-145)
[2024-07-08 12:00] VITALS: BP 121/64; PULSE 58; RESP 18; TEMP 36.2; O2SAT 100
[2024-07-08 16:00] VITALS: BP 135/67; PULSE 54; RESP 18; TEMP 36.7; O2SAT 98
[2024-07-08] MEDS: MORPHINE SULFATE (*CRX) 4 MG/ML INJ IV PUSH (16:01)
--- NOTE | 2024-07-08 16:50 | P.PNIM_ITS ---
Progress Note: A&P Assessment and Plan (1) Perineal abscess: Code(s): L02.215 - Cutaneous abscess of perineum Status: Acute Assessment and Plan: * scrotum ultrasound shown complex peritoneal fluid collection measuring 29 x 24 x 21 mm, suspicious for an abscess * pelvis CT shown perineal abscess measuring 53 x 16 x 26 mm * general surgery consulted and took patient for I&D today * continue pain control * continue Zosyn * SCDs for DVT prophylaxis * wound nurse consulted and placed recommendations * blood culture showing no growth to date on preliminary read * Will likely need help at home with dressing changes 07/08 * continue Zosyn * continue pain control * continue dressing changes * abscess culture still pending * general surgery following Time Spent With Patient Time with patient: 15 - 25 minutes Subjective Date/time seen: 07/08/24 16:50 Interval history: Interval history: This is a 28 year old male who presented to the hospital with scrotal abscess. workup in the hospital included a scrotum ultrasound which showed complex peritoneal fluid collection for which an abscess is suspected, measuring 29 x 24 x 21 mm in size. Pelvic CT showed peroneal abscess measuring 53 x 16 x 26 mm. Initial labs showed a normal white blood cell count of 9.8, potassium 3.2, total bili 1.6. Abscess culture pending. Patient was given LR, Zosyn, pain medication, potassium while in the ED. General surgery was consulted and took patient today for and I and D of the scrotal /groin abscess. Subjective: Denies any new complaints. He states that his pain is controlled right now. Labs reviewed. Review of Systems Review of Systems: All systems reviewed & are unremarkable except as noted in HPI and below (Subjective) Exam Narrative: General: In no acute distress, well nourished Cardiac: Normal S1 and S2. RRR, No murmur, gallops or friction rubs, peripheral pulses intact. Respiratory: Lungs clear to auscultation, no adventitious lung sounds, currently on room air Gastrointestinal: soft, non-distended, non-tender, normoactive bowel sounds. : voiding without difficulty. Skin: perineal OR dressing in place with Iodoform gauze packing. Neuro: Alert and oriented x4 Objective Data Vital Signs Vital Signs: Vital Signs - 24 hr 07/07/24 17:30 07/07/24 20:00 07/08/24 00:00 Temperature 97.7 F 96.8 F L 97 F L Pulse Rate 85 81 70 Respiratory Rate 18 16 18 Blood Pressure 136/66 117/64 128/69 Pulse Oximetry 100 98 98 Oxygen Delivery 07/08/24 04:00 07/08/24 08:00 07/08/24 09:15 Temperature 97.2 F L 97.5 F L Pulse Rate 64 56 L Respiratory Rate 18 18 Blood Pressure 128/59 L 123/58 L Pulse Oximetry 99 100 Oxygen Delivery Room Air 07/08/24 12:00 Temperature 97.1 F L Pulse Rate 58 L Respiratory Rate 18 Blood Pressure 121/64 Pulse Oximetry 100 Oxygen Delivery Intake/Output Intake/Output: Intake & Output 07/05/24 07/06/24 07/07/24 07/08/24 23:59 23:59 23:59 23:59 Intake Total 5651 884 8758 Balance 4605 893 1207 Meds/Results Medications: Active Medications Generic Name Dose Route Start Last Admin Trade Name Freq PRN Reason Stop Dose Admin Acetaminophen 650 mg 07/06/24 20:48 Acetaminophen 325 Mg Tablet PO Q4H PRN Mild Pain (1-3) or Fever Hydrocodone Bitart/Acetaminophen 1 tab 07/07/24 12:22 07/08/24 09:21 Hydrocodone/Acetaminophen (*Crx) 5-325 Mg Tablet PO 1 tab Q4H PRN Administration Pain Rated 4-6 Piperacillin/Tazobactam/Dextrose 3.375 gm in 50 mls @ 100 mls/hr 07/07/24 02:00 07/08/24 14:30 Zosyn 3.375 Gm/Ns 50 Ml IVPB Infused Q6H BORIS Infusion Morphine Sulfate 4 mg 07/06/24 20:48 07/08/24 16:01 Morphine Sulfate (*Crx) 4 Mg/Ml Inj IV PUSH 4 mg Q2H PRN Administration Pain Rated 7-10 Ondansetron HCl 4 mg 07/06/24 20:48 Ondansetron Inj 4 Mg/2 Ml Vial IV PUSH Q4H PRN Nausea Ondansetron HCl 4 mg 07/07/24 07:19 Ondansetron Inj 4 Mg/2 Ml Vial IV PUSH ONCE PRN Nausea Radiology Results: ITS Impressions Scrotum Ultrasound 07/06/24 17:32 IMPRESSION: Complex peritoneal fluid collection for which an abscess is suspected. Pelvis CT 07/06/24 19:48 IMPRESSION: Peroneal abscess, as detailed above. Labs Labs: Laboratory Results - last 24 hr 07/08/24 06:32 WBC 13.5 H RBC 4.99 Hgb 16.1 Hct 45.7 MCV 91.6 MCH 32.3 MCHC 35.2 RDW 12.6 Plt Count 226 MPV 11.2 H Immature Gran % (Auto) 0.7 H Neut % (Auto) 79.9 H Lymph % (Auto) 10.9 L [place] % (Auto) 8.4 Eos % (Auto) 0.0 Baso % (Auto) 0.1 L Lymph # (Auto) 1.48 [place] # (Auto) 1.1 H Eos # (Auto) 0.0 Baso # (Auto) 0.0 Abs Immat Gran (auto) 0.09 H Absolute Neuts (auto) 10.8 H Absolute Nucleated RBC 0.000 Nucleated RBC % 0.0 Sodium 140 Potassium 4.7 Chloride 105 Carbon Dioxide 29 Anion Gap 6 BUN 8 L Creatinine 0.87 Estim Creat Clear Calc 145 Estimated GFR > 60 Glucose 122 H Calcium 8.9 Total Bilirubin 0.6 AST 15 L ALT 20 Alkaline Phosphatase 56 Total Protein 6.0 L Albumin 3.1 L
--- NOTE | 2024-07-08 18:04 | P.PNUR_ITS ---
Progress Note: A&P Assessment and Plan (1) Perineal abscess: Code(s): L02.215 - Cutaneous abscess of perineum Status: Acute Assessment and Plan: Continue packing changes Continue antibiotics Wound cultures pending Subjective Subjective Date/Time Seen: 07/08/24 18:04 Interval history: He has been getting dressing changes with nursing. He has continued on antibiotics. Review of Systems Genitourinary: Comments: There is no testis or penile swelling. The left perineal incision is well opened and packed. I see no purulence or inflammation. Objective Data Vital Signs Vital Signs: Vital Signs - 24 hr 07/07/24 20:00 07/08/24 00:00 07/08/24 04:00 Temperature 36.0 C L 36.1 C L 36.2 C L Pulse Rate 81 70 64 Respiratory Rate 16 18 18 Blood Pressure 117/64 128/69 128/59 L Pulse Oximetry 98 98 99 Oxygen Delivery 07/08/24 08:00 07/08/24 09:15 07/08/24 12:00 Temperature 36.4 C L 36.2 C L Pulse Rate 56 L 58 L Respiratory Rate 18 18 Blood Pressure 123/58 L 121/64 Pulse Oximetry 100 100 Oxygen Delivery Room Air 07/08/24 16:00 Temperature 36.7 C Pulse Rate 54 L Respiratory Rate 18 Blood Pressure 135/67 Pulse Oximetry 98 Oxygen Delivery Intake/Output Intake/Output: Intake & Output 07/05/24 07/06/24 07/07/24 07/08/24 23:59 23:59 23:59 23:59 Intake Total 0482 465 9179 Balance 4791 798 2141 Meds/Results Medications: Active Medications Generic Name Dose Route Start Last Admin Trade Name Freq PRN Reason Stop Dose Admin Acetaminophen 650 mg 07/06/24 20:48 Acetaminophen 325 Mg Tablet PO Q4H PRN Mild Pain (1-3) or Fever Hydrocodone Bitart/Acetaminophen 1 tab 07/07/24 12:22 07/08/24 09:21 Hydrocodone/Acetaminophen (*Crx) 5-325 Mg Tablet PO 1 tab Q4H PRN Administration Pain Rated 4-6 Piperacillin/Tazobactam/Dextrose 3.375 gm in 50 mls @ 100 mls/hr 07/07/24 02:00 07/08/24 14:30 Zosyn 3.375 Gm/Ns 50 Ml IVPB Infused Q6H BORIS Infusion Morphine Sulfate 4 mg 07/06/24 20:48 07/08/24 16:01 Morphine Sulfate (*Crx) 4 Mg/Ml Inj IV PUSH 4 mg Q2H PRN Administration Pain Rated 7-10 Ondansetron HCl 4 mg 07/06/24 20:48 Ondansetron Inj 4 Mg/2 Ml Vial IV PUSH Q4H PRN Nausea Ondansetron HCl 4 mg 07/07/24 07:19 Ondansetron Inj 4 Mg/2 Ml Vial IV PUSH ONCE PRN Nausea Radiology Results: ITS Impressions Scrotum Ultrasound 07/06/24 17:32 IMPRESSION: Complex peritoneal fluid collection for which an abscess is suspected. Pelvis CT 07/06/24 19:48 IMPRESSION: Peroneal abscess, as detailed above. Labs Labs: Laboratory Results - last 24 hr 07/08/24 06:32 WBC 13.5 H RBC 4.99 Hgb 16.1 Hct 45.7 MCV 91.6 MCH 32.3 MCHC 35.2 RDW 12.6 Plt Count 226 MPV 11.2 H Immature Gran % (Auto) 0.7 H Neut % (Auto) 79.9 H Lymph % (Auto) 10.9 L [place] % (Auto) 8.4 Eos % (Auto) 0.0 Baso % (Auto) 0.1 L Lymph # (Auto) 1.48 [place] # (Auto) 1.1 H Eos # (Auto) 0.0 Baso # (Auto) 0.0 Abs Immat Gran (auto) 0.09 H Absolute Neuts (auto) 10.8 H Absolute Nucleated RBC 0.000 Nucleated RBC % 0.0 Sodium 140 Potassium 4.7 Chloride 105 Carbon Dioxide 29 Anion Gap 6 BUN 8 L Creatinine 0.87 Estim Creat Clear Calc 145 Estimated GFR > 60 Glucose 122 H Calcium 8.9 Total Bilirubin 0.6 AST 15 L ALT 20 Alkaline Phosphatase 56 Total Protein 6.0 L Albumin 3.1 L
[2024-07-08 20:00] VITALS: BP 108/60; PULSE 66; RESP 18; TEMP 37.2; O2SAT 100
[2024-07-08] MEDS: SENNA/DOCUSATE SODIUM TABLET 2 TAB PO (22:27)
[2024-07-09] VITALS: BP 133/69; PULSE 52; RESP 18; TEMP 37.2; O2SAT 100
[2024-07-09] MEDS: PIPERACILLN/TAZ 3.375GM/NS50ML 3.375 GM/50 ML BAG IVPB ×4 (02:01→20:35)
[2024-07-09 04:00] VITALS: BP 117/69; PULSE 52; RESP 16; TEMP 37.1; O2SAT 100
[2024-07-09 06:38] LABS: Basophils Percent Auto 0.2 % (0.2-1.2); Eosinophils Absolute Auto 0.1 K/mm3 (0-0.3); Eosinophils Percent Auto 0.6 % (0-4.4); Hematocrit 45.3 % (42.0-52.0); Hemoglobin 15.8 g/dL (14.0-18.0); Immature Granulocyte Absolute 0.01 K/mm3 (0.00-0.031); Immature Granulocyte Percent A 0.1 % (0-0.5); Lymphocytes Absolute Auto 3.24 K/mm3 (0.9-3.2); Mean Corpuscular HGB Conc 34.9 g/dl (32-36); Mean Corpuscular Hemoglobin 32.5 pg (26-34); Mean Corpuscular Volume 93.2 fl (80-100); Mean Platelet Volume 11.4 fl (7.4-10.4); Monocytes Absolute Auto 0.6 K/mm3 (0.1-0.6); Monocytes Percent Auto 7.3 % (2.6-8.5); Neutrophils Absolute Auto 4.4 K/mm3 (1.3-6.7); Neutrophils Percent Auto 52.8 % (45.5-73.1); Platelet Count Result 217 k/mm3 (150-375); Red Blood Count 4.86 M/mm3 (4.6-6.20); Red Cell Distribution Width 12.9 % (11.5-14.5); White Blood Count 8.3 K/mm3 (4.5-10.0)
[2024-07-09 06:49] LABS: Alanine Aminotransferase 19 U/L (6-50); Albumin Level 3.1 g/dL (3.5-5.1); Alkaline Phosphatase 48 U/L (38-126); Anion Gap 7 mmol/L (4-12); Aspartate Amino Transferase 16 U/L (17-59); Bilirubin,Total 0.5 mg/dL (0.2-1.3); Blood Urea Nitrogen 8 mg/dL (9-20); Calcium 8.3 mg/dL (8.4-10.2); Carbon Dioxide 24 mmol/L (22-30); Chloride 108 mmol/L (98-107); Estimated CRCL calculation 147 ml/min; Estimated Glomerular Filt Rate > 60; Glucose 83 mg/dL (65-110); Potassium 3.8 mmol/L (3.4-5.0); Sodium 139 mmol/L (137-145)
[2024-07-09] MEDS: HYDROcodone/acetaminophen (*CRX) 5-325 MG TABLET 1 TAB PO (08:17)
[2024-07-09] MEDS: MORPHINE SULFATE (*CRX) 4 MG/ML INJ IV PUSH (12:26)
--- NOTE | 2024-07-09 13:48 | P.PNIM_ITS ---
Progress Note: A&P Assessment and Plan (1) Perineal abscess: Code(s): L02.215 - Cutaneous abscess of perineum Status: Acute Assessment and Plan: * scrotum ultrasound shown complex peritoneal fluid collection measuring 29 x 24 x 21 mm, suspicious for an abscess * pelvis CT shown perineal abscess measuring 53 x 16 x 26 mm * general surgery consulted and took patient for I&D today * continue pain control * continue Zosyn * SCDs for DVT prophylaxis * wound nurse consulted and placed recommendations * blood culture showing no growth to date on preliminary read * Will likely need help at home with dressing changes 07/08 * continue Zosyn * continue pain control * continue dressing changes * abscess culture still pending * general surgery following 07/09 * Increase Bradford to 7.5 4 hour * Utilize morphine for dressing changes * Abscess culture still pending * Continue Zosyn * General surgery following Time Spent With Patient Time with patient: 15 - 25 minutes Subjective Date/time seen: 07/09/24 13:48 Interval history: Interval history: This is a 28 year old male who presented to the hospital with scrotal abscess. workup in the hospital included a scrotum ultrasound which showed complex peritoneal fluid collection for which an abscess is suspected, measuring 29 x 24 x 21 mm in size. Pelvic CT showed peroneal abscess measuring 53 x 16 x 26 mm. Initial labs showed a normal white blood cell count of 9.8, potassium 3.2, total bili 1.6. Abscess culture pending. Patient was given LR, Zosyn, pain medication, potassium while in the ED. General surgery was consulted and took patient today for and I and D of the scrotal /groin abscess. Subjective: Reporting 10/10 pain today. He states that the packing fell out of his incision when he went to have a bowel movement. He has had pain ever since. Labs reviewed. Review of Systems Review of Systems: All systems reviewed & are unremarkable except as noted in HPI and below (Subjective) Exam Narrative: General: In no acute distress, well nourished Cardiac: Normal S1 and S2. RRR, No murmur, gallops or friction rubs, peripheral pulses intact. Respiratory: Lungs clear to auscultation, no adventitious lung sounds, currently on room air Gastrointestinal: soft, non-distended, non-tender, normoactive bowel sounds. : voiding without difficulty. Skin: perineal dressing in place with Iodoform gauze packing. Neuro: Alert and oriented x4 Objective Data Vital Signs Vital Signs: Vital Signs - 24 hr 07/08/24 16:00 07/08/24 20:00 07/08/24 20:10 Temperature 98.0 F 98.9 F Pulse Rate 54 L 66 Respiratory Rate 18 18 Blood Pressure 135/67 108/60 Pulse Oximetry 98 100 Oxygen Delivery Room Air 07/09/24 00:00 07/09/24 04:00 07/09/24 08:23 Temperature 98.9 F 98.8 F Pulse Rate 52 L 52 L Respiratory Rate 18 16 Blood Pressure 133/69 117/69 Pulse Oximetry 100 100 Oxygen Delivery Room Air Intake/Output Intake/Output: Intake & Output 07/06/24 07/07/24 07/08/24 07/09/24 23:59 23:59 23:59 23:59 Intake Total 1320 613 8255 1080 Balance 7596 831 8407 1080 Meds/Results Medications: Active Medications Generic Name Dose Route Start Last Admin Trade Name Freq PRN Reason Stop Dose Admin Acetaminophen 650 mg 07/06/24 20:48 Acetaminophen 325 Mg Tablet PO Q4H PRN Mild Pain (1-3) or Fever Hydrocodone Bitart/Acetaminophen 1 tab 07/07/24 12:22 07/09/24 08:17 Hydrocodone/Acetaminophen (*Crx) 5-325 Mg Tablet PO 1 tab Q4H PRN Administration Pain Rated 4-6 Piperacillin/Tazobactam/Dextrose 3.375 gm in 50 mls @ 100 mls/hr 07/07/24 02:00 07/09/24 13:30 Zosyn 3.375 Gm/Ns 50 Ml IVPB 100 mls/hr Q6H BORIS Administration Morphine Sulfate 4 mg 07/06/24 20:48 07/09/24 12:26 Morphine Sulfate (*Crx) 4 Mg/Ml Inj IV PUSH 4 mg Q2H PRN Administration Pain Rated 7-10 Ondansetron HCl 4 mg 07/06/24 20:48 Ondansetron Inj 4 Mg/2 Ml Vial IV PUSH Q4H PRN Nausea Ondansetron HCl 4 mg 07/07/24 07:19 Ondansetron Inj 4 Mg/2 Ml Vial IV PUSH ONCE PRN Nausea Senna/Docusate Sodium 2 tab 07/08/24 21:35 07/09/24 08:22 Senna/Docusate Sodium Tablet PO Not Given BID BORIS Radiology Results: ITS Impressions Scrotum Ultrasound 07/06/24 17:32 IMPRESSION: Complex peritoneal fluid collection for which an abscess is suspected. Pelvis CT 07/06/24 19:48 IMPRESSION: Peroneal abscess, as detailed above. Labs Labs: Laboratory Results - last 24 hr 07/09/24 06:13 WBC 8.3 RBC 4.86 Hgb 15.8 Hct 45.3 MCV 93.2 MCH 32.5 MCHC 34.9 RDW 12.9 Plt Count 217 MPV 11.4 H Immature Gran % (Auto) 0.1 Neut % (Auto) 52.8 Lymph % (Auto) 39.0 [place] % (Auto) 7.3 Eos % (Auto) 0.6 Baso % (Auto) 0.2 Lymph # (Auto) 3.24 H [place] # (Auto) 0.6 Eos # (Auto) 0.1 Baso # (Auto) 0.0 Abs Immat Gran (auto) 0.01 Absolute Neuts (auto) 4.4 Absolute Nucleated RBC 0.000 Nucleated RBC % 0.0 Sodium 139 Potassium 3.8 Chloride 108 H Carbon Dioxide 24 Anion Gap 7 BUN 8 L Creatinine 0.86 Estim Creat Clear Calc 147 Estimated GFR > 60 Glucose 83 Calcium 8.3 L Total Bilirubin 0.5 AST 16 L ALT 19 Alkaline Phosphatase 48 Total Protein 4.0 L Albumin 3.1 L
[2024-07-09 14:00] VITALS: BP 124/56; PULSE 60; RESP 18; TEMP 36.3; O2SAT 100
--- NOTE | 2024-07-09 16:56 | P.PNUR_ITS ---
Progress Note: A&P Assessment and Plan (1) Perineal abscess: Code(s): L02.215 - Cutaneous abscess of perineum Status: Acute Assessment and Plan: infection improving; WBC normal. Continue packing changes Subjective Subjective Date/Time Seen: 07/09/24 16:56 Interval history: No fever or chills. Bandage being changed by nursing. Exam : Other: no scrotal swelling. Skin normal around packing Objective Data Vital Signs Vital Signs: Vital Signs - 24 hr 07/08/24 20:00 07/08/24 20:10 07/09/24 00:00 Temperature 37.2 C 37.2 C Pulse Rate 66 52 L Respiratory Rate 18 18 Blood Pressure 108/60 133/69 Pulse Oximetry 100 100 Oxygen Delivery Room Air 07/09/24 04:00 07/09/24 08:23 07/09/24 14:00 Temperature 37.1 C 36.3 C L Pulse Rate 52 L 60 Respiratory Rate 16 18 Blood Pressure 117/69 124/56 L Pulse Oximetry 100 100 Oxygen Delivery Room Air Intake/Output Intake/Output: Intake & Output 07/06/24 07/07/24 07/08/24 07/09/24 23:59 23:59 23:59 23:59 Intake Total 7319 395 0424 1130 Balance 1738 264 8318 1130 Meds/Results Medications: Active Medications Generic Name Dose Route Start Last Admin Trade Name Freq PRN Reason Stop Dose Admin Acetaminophen 650 mg 07/06/24 20:48 Acetaminophen 325 Mg Tablet PO Q4H PRN Mild Pain (1-3) or Fever Hydrocodone Bitart/Acetaminophen 1 tab 07/09/24 13:48 Hydrocodone/Acetaminophen (*Crx) 7.5-325 Mg Tablet PO Q4H PRN Pain Rated 7-10 Piperacillin/Tazobactam/Dextrose 3.375 gm in 50 mls @ 100 mls/hr 07/07/24 02:00 07/09/24 14:00 Zosyn 3.375 Gm/Ns 50 Ml IVPB Infused Q6H BORIS Infusion Morphine Sulfate 4 mg 07/06/24 20:48 07/09/24 12:26 Morphine Sulfate (*Crx) 4 Mg/Ml Inj IV PUSH 4 mg Q2H PRN Administration Pain Rated 7-10 Ondansetron HCl 4 mg 07/06/24 20:48 Ondansetron Inj 4 Mg/2 Ml Vial IV PUSH Q4H PRN Nausea Ondansetron HCl 4 mg 07/07/24 07:19 Ondansetron Inj 4 Mg/2 Ml Vial IV PUSH ONCE PRN Nausea Senna/Docusate Sodium 2 tab 07/08/24 21:35 07/09/24 08:22 Senna/Docusate Sodium Tablet PO Not Given BID [facility] Radiology Results: ITS Impressions Scrotum Ultrasound 07/06/24 17:32 IMPRESSION: Complex peritoneal fluid collection for which an abscess is suspected. Pelvis CT 07/06/24 19:48 IMPRESSION: Peroneal abscess, as detailed above. Labs Labs: Laboratory Results - last 24 hr 07/09/24 06:13 WBC 8.3 RBC 4.86 Hgb 15.8 Hct 45.3 MCV 93.2 MCH 32.5 MCHC 34.9 RDW 12.9 Plt Count 217 MPV 11.4 H Immature Gran % (Auto) 0.1 Neut % (Auto) 52.8 Lymph % (Auto) 39.0 [place] % (Auto) 7.3 Eos % (Auto) 0.6 Baso % (Auto) 0.2 Lymph # (Auto) 3.24 H [place] # (Auto) 0.6 Eos # (Auto) 0.1 Baso # (Auto) 0.0 Abs Immat Gran (auto) 0.01 Absolute Neuts (auto) 4.4 Absolute Nucleated RBC 0.000 Nucleated RBC % 0.0 Sodium 139 Potassium 3.8 Chloride 108 H Carbon Dioxide 24 Anion Gap 7 BUN 8 L Creatinine 0.86 Estim Creat Clear Calc 147 Estimated GFR > 60 Glucose 83 Calcium 8.3 L Total Bilirubin 0.5 AST 16 L ALT 19 Alkaline Phosphatase 48 Total Protein 4.0 L Albumin 3.1 L
[2024-07-09] MEDS: HYDROcodone/acetaminophen (*CRX) 7.5-325 MG TABLET 1 TAB PO (17:41)
[2024-07-09 21:58] VITALS: BP 129/60; PULSE 60; RESP 18; TEMP 36.1; O2SAT 100
[2024-07-10] MEDS: PIPERACILLN/TAZ 3.375GM/NS50ML 3.375 GM/50 ML BAG IVPB ×3 (01:40→14:52)
[2024-07-10] MEDS: HYDROcodone/acetaminophen (*CRX) 7.5-325 MG TABLET 1 TAB PO ×3 (02:15→14:59)
[2024-07-10 06:00] VITALS: BP 124/64; PULSE 60; RESP 18; TEMP 36.6; O2SAT 100
[2024-07-10 06:54] LABS: Basophils Percent Auto 0.5 % (0.2-1.2); Eosinophils Absolute Auto 0.1 K/mm3 (0-0.3); Eosinophils Percent Auto 1.6 % (0-4.4); Hematocrit 48.9 % (42.0-52.0); Immature Granulocyte Absolute 0.01 K/mm3 (0.00-0.031); Immature Granulocyte Percent A 0.2 % (0-0.5); Lymphocytes Absolute Auto 2.81 K/mm3 (0.9-3.2); Lymphocytes Percent Auto 44.2 % (18.3-44.2); Mean Corpuscular HGB Conc 34.8 g/dl (32-36); Mean Corpuscular Hemoglobin 32.5 pg (26-34); Mean Corpuscular Volume 93.5 fl (80-100); Mean Platelet Volume 11.1 fl (7.4-10.4); Monocytes Absolute Auto 0.5 K/mm3 (0.1-0.6); Monocytes Percent Auto 8.5 % (2.6-8.5); Neutrophils Absolute Auto 2.9 K/mm3 (1.3-6.7); Platelet Count Result 225 k/mm3 (150-375); Red Blood Count 5.23 M/mm3 (4.6-6.20); Red Cell Distribution Width 13.1 % (11.5-14.5); White Blood Count 6.4 K/mm3 (4.5-10.0)
[2024-07-10 07:08] LABS: Alanine Aminotransferase 24 U/L (6-50); Albumin Level 3.5 g/dL (3.5-5.1); Alkaline Phosphatase 49 U/L (38-126); Anion Gap 8 mmol/L (4-12); Aspartate Amino Transferase 19 U/L (17-59); Bilirubin,Total 0.5 mg/dL (0.2-1.3); Blood Urea Nitrogen 6 mg/dL (9-20); Calcium 8.4 mg/dL (8.4-10.2); Carbon Dioxide 28 mmol/L (22-30); Chloride 103 mmol/L (98-107); Estimated CRCL calculation 159 ml/min; Estimated Glomerular Filt Rate > 60; Glucose 80 mg/dL (65-110); Potassium 3.9 mmol/L (3.4-5.0); Sodium 139 mmol/L (137-145)
[2024-07-10] MEDS: SENNA/DOCUSATE SODIUM TABLET 2 TAB PO ×2 (09:15→18:05)
--- NOTE | 2024-07-10 10:33 | WPDCDIQUERY2 ---
CDI Query Clarification Request Please clarify the depth of incision and drainage for the abscess on scrotum/groin on 07-07-24 The medical record reflects the following: Risk factors: 28-year-old male with no prior medical history except for intermittent and spontaneous skin lesion/cyst on his thighs and gentle area. He presents to [place] with a complaint of pain since the day prior to admission which has become increasingly painful and large. Patient denies any drainage. He denies any trouble urinating. Recently at [facility] he had a similar abscess drained. ER physician noted minimal purulent drainage. Ultrasound of scrotum and pelvis CT both demonstrate a perennial abscess measuring 53 x 16 x 26 mm. ER physician spoke with Dr. Santacruz who anticipates incision and drainage in the OR on 07/07/2024. Clinical findings: He was prepped and draped in the frogleg position. A time-out performed. Examination revealed a scrotal and groin abscess in the left inferior groin scrotal region. It was away from the urethra. Was away from the anus. It was away from the testicles. I localized the area with local mixed with epinephrine. I made incision over this abscess. Copious purulent material was drained. This was sent for culture. I opened the entire scrotal abscess up to aid in wound packing. I irrigated out the wound copiously. I packed it with iodoform gauze. There was no evidence of injury to the urethra, testicles, surrounding organs. Sterile dressing was applied. I will get a wound care consult to help manage the wound. He likely be able to care for this on his own upon discharge. He was awakened transferred to the PACU in stable condition. Treatment: IV abx
[2024-07-10 14:00] VITALS: BP 129/59; PULSE 60; RESP 18; TEMP 36.2; O2SAT 100
--- NOTE | 2024-07-10 16:11 | WPDUROPN2 ---
Progress Note: A&P Assessment and Plan (1) Perineal abscess: Code(s): L02.215 - Cutaneous abscess of perineum Status: Acute Assessment and Plan: Infection resolving WBC normal, afebrile Plan Continue packing changes Urologically cleared for discharge Subjective Subjective Date/Time Seen: 07/10/24 16:11 Interval history: NAEO; Patient reports severe, uncontrolled pain with surgical dressing changes. Comfortable at rest. Denies issues urinating. No constipation. Denies worsening scrotal swelling. Exam : Other: No scrotal swelling. Skin normal around packing. Objective Data Vital Signs Vital Signs: Vital Signs - 24 hr 07/09/24 21:58 07/10/24 06:00 07/10/24 14:00 Temperature 97.0 F L 97.8 F 97.1 F L Pulse Rate 60 60 60 Respiratory Rate 18 18 18 Blood Pressure 129/60 124/64 129/59 L Pulse Oximetry 100 100 100 Intake/Output Intake/Output: Intake & Output 07/07/24 07/08/24 07/09/24 07/10/24 23:59 23:59 23:59 23:59 Intake Total 890 2450 1180 580 Output Total 3 Balance 890 2450 1180 577 Meds/Results Medications: Active Medications Generic Name Dose Route Start Last Admin Trade Name Freq PRN Reason Stop Dose Admin Acetaminophen 650 mg 07/06/24 20:48 Acetaminophen 325 Mg Tablet PO Q4H PRN Mild Pain (1-3) or Fever Hydrocodone Bitart/Acetaminophen 1 tab 07/09/24 13:48 07/10/24 14:59 Hydrocodone/Acetaminophen (*Crx) 7.5-325 Mg Tablet PO 1 tab Q4H PRN Administration Pain Rated 7-10 Piperacillin/Tazobactam/Dextrose 3.375 gm in 50 mls @ 100 mls/hr 07/07/24 02:00 07/10/24 14:52 Zosyn 3.375 Gm/Ns 50 Ml IVPB 100 mls/hr Q6H BORIS Administration Morphine Sulfate 4 mg 07/06/24 20:48 07/09/24 12:26 Morphine Sulfate (*Crx) 4 Mg/Ml Inj IV PUSH 4 mg Q2H PRN Administration Pain Rated 7-10 Ondansetron HCl 4 mg 07/06/24 20:48 Ondansetron Inj 4 Mg/2 Ml Vial IV PUSH Q4H PRN Nausea Ondansetron HCl 4 mg 07/07/24 07:19 Ondansetron Inj 4 Mg/2 Ml Vial IV PUSH ONCE PRN Nausea Senna/Docusate Sodium 2 tab 07/08/24 21:35 07/10/24 09:15 Senna/Docusate Sodium Tablet PO 2 tab BID BORIS Administration Radiology Results: ITS Impressions Scrotum Ultrasound 07/06/24 17:32 IMPRESSION: Complex peritoneal fluid collection for which an abscess is suspected. Pelvis CT 07/06/24 19:48 IMPRESSION: Peroneal abscess, as detailed above. Labs Labs: Laboratory Results - last 24 hr 07/10/24 06:24 WBC 6.4 RBC 5.23 Hgb 17.0 Hct 48.9 MCV 93.5 MCH 32.5 MCHC 34.8 RDW 13.1 Plt Count 225 MPV 11.1 H Immature Gran % (Auto) 0.2 Neut % (Auto) 45.0 L Lymph % (Auto) 44.2 [place] % (Auto) 8.5 Eos % (Auto) 1.6 Baso % (Auto) 0.5 Lymph # (Auto) 2.81 [place] # (Auto) 0.5 Eos # (Auto) 0.1 Baso # (Auto) 0.0 Abs Immat Gran (auto) 0.01 Absolute Neuts (auto) 2.9 Absolute Nucleated RBC 0.000 Nucleated RBC % 0.0 Sodium 139 Potassium 3.9 Chloride 103 Carbon Dioxide 28 Anion Gap 8 BUN 6 L Creatinine 0.79 Estim Creat Clear Calc 159 Estimated GFR > 60 Glucose 80 Calcium 8.4 Total Bilirubin 0.5 AST 19 ALT 24 Alkaline Phosphatase 49 Total Protein 6.0 L Albumin 3.5
--- NOTE | 2024-07-10 18:02 | P.DS_ITS ---
DS: Admitting Diagnosis Discharge Date 07/10/24 DS: Summary Time Spent with Patient Time attestation: Total time spent providing and/or coordinating discharge services: DS: Data Data Completed and Pending Labs on day of discharge: Labs from last 24 hours 07/10/24 06:24 WBC 6.4 RBC 5.23 Hgb 17.0 Hct 48.9 MCV 93.5 MCH 32.5 MCHC 34.8 RDW 13.1 Plt Count 225 MPV 11.1 H Immature Gran % (Auto) 0.2 Neut % (Auto) 45.0 L Lymph % (Auto) 44.2 [place] % (Auto) 8.5 Eos % (Auto) 1.6 Baso % (Auto) 0.5 Lymph # (Auto) 2.81 [place] # (Auto) 0.5 Eos # (Auto) 0.1 Baso # (Auto) 0.0 Abs Immat Gran (auto) 0.01 Absolute Neuts (auto) 2.9 Absolute Nucleated RBC 0.000 Nucleated RBC % 0.0 Sodium 139 Potassium 3.9 Chloride 103 Carbon Dioxide 28 Anion Gap 8 BUN 6 L Creatinine 0.79 Estim Creat Clear Calc 159 Estimated GFR > 60 Glucose 80 Calcium 8.4 Total Bilirubin 0.5 AST 19 ALT 24 Alkaline Phosphatase 49 Total Protein 6.0 L Albumin 3.5 Preliminary micro results at discharge 07/07/24 11:07 Anaerobic Culture - Preliminary Abscess Peptostreptococcus species Discharge Plan Discharge Attending physician on discharge: Eliseo Long Consulting providers: Sonu Almaraz; Adebayo Santacruz Discharging Clinician: Melissa Lee Anticipated Discharge Date/Time: 07/10/24 15:11 Patient Disposition: Home, Self-Care Activity: may shower and as tolerated Diet: as tolerated Wound Care Instructions: other - see discharge instructions Discharge Instructions: * Daily cleanse scrotum wound with saline. Apply silver gel to wound bed and lightly pack with 1/2 inch iodoform gauze ribbon. Cover with gauze 4x4's or ABD pad and support with jock strap to hold dressing in place. * Follow up with primary care doctor in 1 week * Finish all your antibiotics as prescribed Patient Instructions: Antibiotic Form, Amoxicillin/Clavulanate Potassium (By mouth), Abscess (GEN) Patient Language: Urdu Stand Alone Forms: General Discharge Information Follow-up/Referrals: PHYSICIAN,DENTAL DETAIL REPRESENTATIVE [Primary Care Provider] - 1 Week Discharge Medications: New hydrocodone-acetaminophen 7.5-325 mg Tablet 1 tablet PO Q4H PRN (Reason: Pain Rated 7-10) Qty: 25 0RF amoxicillin-pot clavulanate 875-125 mg tablet 1 tablet PO Q12H Qty: 12 0RF Date of admission: 07/08/24 18:10 Primary Care Provider: PHYSICIAN,DENTAL DETAIL REPRESENTATIVE Admitting Provider: Vivian Lester Attending physician on admission: Melissa Lee Condition: Improved
== END 2024-07-10 18:35 | disposition home or self-care (01) | DRG 501 ==
LOC: ANHED 20:55 → ANH3MEDSUR 22:29
PROVIDERS: Urology; Admitting Provider General Practice; Emergency Provider Student in an Organized Health Care Education/Training Program; Visit Provider Nurse Practitioner Acute Care
PROC: 0V950ZZ Drainage of Scrotum, Open Approach (ICD-10-PCS; CPT 54700; principal; 2024-07-07 10:30)
DX: N49.2 Inflammatory disorders of scrotum (principal); L02.215 Cutaneous abscess of perineum
CPT/HCPCS: 36415; 72193; 76870; 80048; 80053; 83605; 83735; 85025; 87070; 87075; 87205; 93976; 96365; 96375; 96376; 99285; A9270; G0378; G0379; J1100; J2003; J2250; J2270; J2405; J2543; J2704; J3010; J7120; Q9967

== ENCOUNTER 2024-09-13 17:02 | Emergency (ER) | payer SELFPAY ==
--- NOTE | ~2024-09-13 | CT_ITS ---
CT pelvis w con Ordering provider: Meghann Carlton PA-C History: . recent L groin/scrotal abscess, more pain/draining . Comparison: July 06, 2024 Technique: CT pelvis without oral and IV contrast. . Automated exposure control and iterative recons truction technique were employed. The dose-length product was 509.16 mGy-cm. 100 mL Omnipaque 350 was given IV. Findings: BONES: No pelvic fracture or hip dislocation. Normal lumbar spine. The hip and sacroiliac joint space s are well maintained. SUPERFICIAL SOFT TISSUES: The previously seen abscesses in the left scrotal area is multiple demonstr ated. Possible residual portion measuring 3.8 x 1 cm none. Clinical correlation advised. Bilateral in guinal lymphadenopathy seen PELVIC ORGANS: The bladder is underfilled VISUALIZED BOWEL AND MESENTERY: Normal. No free air or free fluid. No lymphadenopathy. RETROPERITONEUM: Normal IMPRESSION: Possible residual abscess in the left scrotal area. Clinical evaluation advised. Reviewed, dictated and finalized at location A.
[2024-09-13 17:03] VITALS: BP 145/75; PULSE 86; RESP 16; O2SAT 99
--- OUTSIDE RECORDS SUMMARY | 2024-09-13 17:05 | XMS_ITS | Referral Summary ---
Author Organization [facility] Address [address] [place] [id number] Care Team Providers Care Senior Consulting Manager Name Role Phone No, Physician Primary Care Provider [phone] Allergies No known active allergies Social History [...] on file Legal Sex Male 7:37 PM [employer] Gender Identity Not on file Sexual Orientation [...] Plan of Treatment Not on file [place] [address] [place] [id number] PLAN [facility] MARIBEL BARRY [id number] [facility] Care Teams Senior Consulting Manager Relationship Specialty Start Date End Date No, Physician PCP - General 07/01/19
--- OUTSIDE RECORDS SUMMARY | 2024-09-13 17:05 | XMS_ITS | Clinical Summary ---
Author Organization [facility] Address [address] [place] [address] Care Team Providers Care Residential Coordinator Name Role Phone Unavailable Primary Care Provider [...] Date Last Done Comments Annual Physical 2000 Hepatitis C 2015 DTaP, Tdap and Td Vaccines ( 1 - Tdap) 2016 Hepatitis B Vaccines (1 of 3 - 19+ 3-dose series) 2016 COVID-19 Vaccine (2023-2 5 season) 2024 HPV Vaccines Aged Out No longer eligi ble based on patient's age to complete this topic Meningococcal B Vaccine Aged Out No l onger eligible based on patient's age to complete this topic Meningococcal Vaccine Aged Out No rosemarie benjamín eligible based on patient's age to complete this topic Pneumococcal Vaccine: Pediat rics (0 to 5 Years) and At-Risk Patients (6 to 49 Years) Aged Out No longer eligible b ased on patient's age to complete this topic RSV Immunizations Under 20 Months Aged Out No longer eligible based on patient's age to complete this topic
--- OUTSIDE RECORDS SUMMARY | 2024-09-13 17:05 | XMS_ITS | Clinical Summary ---
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
--- OUTSIDE RECORDS SUMMARY | 2024-09-13 17:05 | XMS_ITS | Clinical Summary ---
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
--- OUTSIDE RECORDS SUMMARY | 2024-09-13 17:48 | XMS_ITS | Clinical Summary ---
Author Organization [facility] Address [address] [place] [id number] Care Team Providers Care Client Support Coordinator Name Role Phone Unavailable Primary Care [...]
--- OUTSIDE RECORDS SUMMARY | 2024-09-13 17:48 | XMS_ITS | Clinical Summary ---
Author Organization [facility] Address [address] [place] [address] Care Team Providers Care School Age Program Associate Name Role Phone Unavailable Primary Care Provider Unavailabl e Social History Tobacco Use Types Packs/Day Years Used Date Smoking Tobacco: Never Assessed Sex and Gender Information Value Date Recorded Sex Assigned at Not on file Legal Sex Male 2:53 PM [employer] Gender Identity Not on file Sexual Orientation [...]
[2024-09-13 18:15] LABS: Basophils Percent Auto 0.5 % (0.2-1.2); Eosinophils Percent Auto 0.5 % (0-4.4); Hematocrit 47.9 % (42.0-52.0); Hemoglobin 16.9 g/dL (14.0-18.0); Immature Granulocyte Absolute 0.01 K/mm3 (0.00-0.031); Immature Granulocyte Percent A 0.1 % (0-0.5); Lymphocytes Absolute Auto 1.95 K/mm3 (0.9-3.2); Lymphocytes Percent Auto 26.1 % (18.3-44.2); Mean Corpuscular HGB Conc 35.3 g/dl (32-36); Mean Corpuscular Hemoglobin 32.8 pg (26-34); Mean Corpuscular Volume 92.8 fl (80-100); Mean Platelet Volume 11.4 fl (7.4-10.4); Monocytes Absolute Auto 0.5 K/mm3 (0.1-0.6); Monocytes Percent Auto 6.7 % (2.6-8.5); Neutrophils Absolute Auto 4.9 K/mm3 (1.3-6.7); Neutrophils Percent Auto 66.1 % (45.5-73.1); Platelet Count Result 211 k/mm3 (150-375); Red Blood Count 5.16 M/mm3 (4.6-6.20); White Blood Count 7.5 K/mm3 (4.5-10.0)
--- NOTE | 2024-09-13 18:15 | ED_ITS ---
HPI - Skin/Abscess/Foreign Bdy General Chief complaint: Skin/Abscess/Foreign Body Stated complaint: post surgical pain Time Seen by Provider: 09/13/24 17:30 Source: patient and old records reviewed Mode of arrival: ambulatory Limitations: no limitations History of Present Illness HPI narrative: Patient is a 29-year-old male who presents the ED with concern for recurrent groin abscess. Patient was seen in the ED here diagnosed with a left-sided scrotal/perineal abscess. Was unable to tolerate I&D at bedside and underwent incision and drainage in the OR with Dr. Perry. States he has been doing well since then, however over the last couple days he has had increased pain and swelling in his left-sided scrotum/along the incision of the previous abscess. He states he had a small amount of pus-like drainage from the incision yesterday. Denies drainage today. Denies fevers. He is not diabetic. Not currently on antibiotics. Related Data Allergies Allergy/AdvReac Type Severity Reaction Status Date / Time No Known Allergies Allergy Verified 09/13/24 18:16 Review of Systems 2 Review of Systems: All systems reviewed & are unremarkable except as noted in HPI. All systems reviewed & are unremarkable except as noted in HPI and below PMFSH Past Medical History Medical History No active medical problems Social History Social History Years smoked: 11 Smoking status: Current every day smoker Tobacco type: cigars Alcohol intake: current Drinks per week: 4 Substance use: never Do You Feel Safe in your Home?: Yes Lack of Transportation: No Lack of Food: Never True Current Housing: I Have Housing Concerned About Future Housing: No Difficulty Paying Gas/Electric Bills: No Difficulty Paying for Meds: No Currently Unemployed: YES Education: High School Diploma/GED Difficulty w/ Childcare or Family Care: No Spiritual care concerns: No Exam 2 Narrative: GENERAL: Well appearing, obese with BMI of 34.0, non-toxic, in no acute distress. HEAD: Normocephalic, atraumatic. RESPIRATORY: Airway patent, respirations nonlabored. CARDIOVASCULAR: Regular rate and rhythm MUSCULOSKELETAL: Moves all extremities. No gross deformities. SKIN: Warm, dry, normal color. Incision along L inguinal fold/inferior scrotum/lateral perineal region without significant induration or appreciable focal fluctuance. Pinpoint area of purulent drainage. Minimal tenderness. NEURO: A&O X3. Speech clear. Cranial nerves II-XII grossly intact. Steady gait. No ataxic movements. PSYCHIATRIC: Appropriate mood and affect. Normal interaction. Course Vital Signs Vital signs: Vital Signs Pulse Rate 86 09/13/24 17:03 Respiratory Rate 16 09/13/24 17:03 Blood Pressure 145/75 H 09/13/24 17:03 Pulse Oximetry 99 09/13/24 17:03 Pulse Rate 89 09/13/24 22:45 Respiratory Rate 19 09/13/24 22:45 Blood Pressure 130/68 09/13/24 22:45 Pulse Oximetry 100 09/13/24 22:45 MDM - Skin/Abscess/Foreign Bdy MDM Narrative Medical decision making narrative: Patient presented to ED with concern for recurrent left-sided scrotal abscess, required I&D drainage in the OR in July. Patient states he has been doing well since then, but noticed increased pain and swelling, drainage over the past couple of days. Vital signs stable upon arrival. Patient is afebrile. Cbc without leukocytosis. BMP unremarkable. Lactic acid WNL. CT pelvis was obtained to rule out recurrent abscess formation/collection. CT does show area of possible residual abscess, measuring 3.8 x 1 cm. On repeat exam, I do not appreciate any focal areas of fluctuance. There is no current drainage. I am able to see the previous incision site, however again I do not palpate fluctuance along the incision and do not feel comfortable incising at this time. Patient very hesitant to allow for any incision/drainage. Discussed case with Dr. Santacruz, urology, feel it is reasonable to start patient on antibiotics for the next 2 weeks, have close follow-up in the office. Previous wound culture from surgery resulted positive for peptostreptococcus, prevotella. Path report does not show sensitivities or resistances. Initially had discussed placing patient on Bactrim with Dr. Santacruz, however literature review shows that bactrim does not typically cover for these species. Will place patient on clindamycin. Discussed possibility of diarrhea with clindamycin, recommended the patient take probiotic. Advised patient to contact Urology office tomorrow and have a follow-up appointment in office within the next 1 week. Discussed very strict return precautions and patient voiced understanding. Discharged in stable condition. Medical Records Attestation: I reviewed the patient's medical records. Lab Data Attestation: I reviewed the patient's lab results. 09/13/24 17:56 09/13/24 17:56 Labs: Lab Results 09/13/24 Range/Units 17:56 WBC 7.5 (4.5-10.0) K/mm3 RBC 5.16 (4.6-6.20) M/mm3 Hgb 16.9 (14.0-18.0) g/dL Hct 47.9 (42.0-52.0) % MCV 92.8 (80-100) fl MCH 32.8 (26-34) pg MCHC 35.3 (32-36) g/dl RDW 12.0 (11.5-14.5) % Plt Count 211 (150-375) k/mm3 MPV 11.4 H (7.4-10.4) fl Immature Gran % (Auto) 0.1 (0-0.5) % Neut % (Auto) 66.1 (45.5-73.1) % Lymph % (Auto) 26.1 (18.3-44.2) % Republic % (Auto) 6.7 (2.6-8.5) % Eos % (Auto) 0.5 (0-4.4) % Baso % (Auto) 0.5 (0.2-1.2) % Lymph # (Auto) 1.95 (0.9-3.2) K/mm3 Republic # (Auto) 0.5 (0.1-0.6) K/mm3 Eos # (Auto) 0.0 (0-0.3) K/mm3 Baso # (Auto) 0.0 (0.0-0.1) K/mm3 Abs Immat Gran (auto) 0.01 (0.00-0.031) K/mm3 Absolute Neuts (auto) 4.9 (1.3-6.7) K/mm3 Absolute Nucleated RBC 0.000 (0.0-0.012) K/mm3 Nucleated RBC % 0.0 (0.0-0.2) % Sodium 138 (137-145) mmol/L Potassium 3.6 (3.4-5.0) mmol/L Chloride 106 (98-107) mmol/L Carbon Dioxide 24 (22-30) mmol/L Anion Gap 8 (4-12) mmol/L BUN 8 L (9-20) mg/dL Creatinine 0.86 (0.7-1.3) mg/dL Estim Creat Clear Calc 155 ml/min Estimated GFR > 60 (59 - ) Glucose 92 (65-110) mg/dL Lactic Acid 0.8 (0.7-2.0) mmol/L Calcium 9.1 (8.4-10.2) mg/dL Imaging Data Attestation: I personally reviewed and interpreted this imaging study as follows: Radiologist's impression: IMPRESSION: Possible residual abscess in the left scrotal area. Clinical evaluation advised. Discharge Plan Discharge Clinical Impression: Perineal abscess Patient Disposition: Home Condition: Stable Instructions: Antibiotic Form, Cellulitis (ED), Abscess (ED), Sitz Bath (DC) Additional Instructions: Take antibiotics as prescribed the next 2 weeks. These antibiotics can cause diarrhea. Recommend taking daily probiotic with the antibiotics. Follow-up with urology office for further evaluation within the next 1 week. Call office to make appointment. Recommend frequent warm compresses/Sitz baths to help with inflammation. You may utilize Tylenol, ibuprofen as needed for pain. Return to the ED if you experience worsening or severe symptoms, severe swelling, severe drainage, fevers, unable to keep down food/drink/antibiotics, or any other symptoms of concern. Patient Language: Barbadian Prescriptions: New clindamycin HCl [Cleocin HCl] 150 mg capsule 450 mg PO TID 14 Days Qty: 126 0RF No Action hydrocodone-acetaminophen 7.5-325 mg Tablet 1 tablet PO Q4H PRN (Reason: Pain Rated 7-10) Qty: 25 0RF amoxicillin-pot clavulanate 875-125 mg tablet 1 tablet PO Q12H Qty: 12 0RF Follow-up/Referrals: Neal Perry MD [Physician] - (UROLOGY) PHYSICIAN,LINE PAINTING MACHINE OPERATOR [Primary Care Provider] - Time of Disposition: 22:28
[2024-09-13 18:23] LABS: Anion Gap 8 mmol/L (4-12); Blood Urea Nitrogen 8 mg/dL (9-20); Calcium 9.1 mg/dL (8.4-10.2); Carbon Dioxide 24 mmol/L (22-30); Chloride 106 mmol/L (98-107); Estimated CRCL calculation 155 ml/min; Estimated Glomerular Filt Rate > 60; Glucose 92 mg/dL (65-110); Lactic Acid Reflex 0.8 mmol/L (0.7-2.0); Potassium 3.6 mmol/L (3.4-5.0); Sodium 138 mmol/L (137-145)
--- NOTE | 2024-09-13 19:31 | PC.NURSE ---
Assumed care of pt after receiving bedside report from ANDRE Olson. @ [phone]
[2024-09-13] MEDS: CLINDAMYCIN HCL 150 MG CAP 450 MG PO (22:43)
[2024-09-13 22:45] VITALS: BP 130/68; PULSE 89; RESP 19; O2SAT 100
== END 2024-09-13 22:45 | disposition home or self-care (01) ==
PROVIDERS: Emergency Provider Physician Assistant
DX: L02.215 Cutaneous abscess of perineum (principal)
CPT/HCPCS: 36415; 72193; 80048; 83605; 85025; 99284; Q9967